=== PATIENT | male | born 1965 | race Caucasian/White ===

== ENCOUNTER 2016-08-16 13:56 | Outpatient (CLI) | payer OTHER ==
[~2016-08-16] VITALS: Ht 177.8 cm; Wt 110.3 kg
[~2016-08-16 13:56] MED LIST: DOCU-143 PO; FOLI1TAB24 PO; FURO20TA4 PO; HYDR-3990 PO; PANT40TA2 PO; PROP20TA5 PO; RABE20TA27 PO
[2016-08-16 14:05] VITALS: BP 134/82
[2016-08-16] MEDS ORDERED: ESCI10TA PO (14:09)
[2016-08-16] MEDS ORDERED: CETI10TA20 PO (14:09)
[2016-08-16] MEDS ORDERED: CLON0.1T PO (14:09)
[2016-08-16 14:35] LABS: BASOPHILS % (AUTO) 0 % (0-10); EOSINOPHILS # (AUTO) 0.1 10^3/uL (0.0-0.3); EOSINOPHILS % (AUTO) 2 % (0-10); LYMPHOCYTES # (AUTO) 1.4 X 10^3 (1.0-4.0); LYMPHOCYTES % (AUTO) 31 % (12-44); MEAN CORPUSCULAR HEMOGLOBIN 26 PG (25-34); MEAN CORPUSCULAR HGB CONC 31 G/DL (32-36); MEAN CORPUSCULAR VOLUME 83 FL (80-99); MEAN PLATELET VOLUME 10.3 FL (7.4-10.4); MONOCYTES # (AUTO) 0.7 X 10^3 (0.0-1.0); MONOCYTES % (AUTO) 15 % (0-12); NEUTROPHILS # (AUTO) 2.4 X 10^3 (1.8-7.8); NEUTROPHILS % (AUTO) 52 % (42-75); PLATELET COUNT 93 10^3/uL (130-400); RED BLOOD COUNT 3.56 10^6/uL (4.35-5.85); WHITE BLOOD COUNT 4.6 10^3/uL (4.3-11.0)
[2016-08-20] MEDS ORDERED: HYDR-3820 PO (10:00)
== END 2016-08-16 16:11 | disposition home or self-care (01) ==
LOC: PREOP 13:56
PROVIDERS: ATTEND Surgery
DX: Z01.812 Encounter for preprocedural laboratory examination (principal); Z11.2 Encounter for screening for other bacterial diseases; K42.9 Umbilical hernia without obstruction or gangrene
CPT/HCPCS: 36415; 85025; 87081

== ENCOUNTER 2016-08-20 07:24 | Day surgery (SDC) | payer OTHER ==
[~2016-08-20] VITALS: Ht 177.8 cm; Wt 110.3 kg
[~2016-08-20 07:24] MED LIST changes: +CETI10TA20 PO; +CLON0.1T PO; +ESCI10TA PO; +LACTATED RINGERS 1,000 ML IV PRN
[2016-08-20 07:43] LABS: MEAN PLATELET VOLUME 9.9 FL (7.4-10.4); RED BLOOD COUNT 3.84 10^6/uL (4.35-5.85); RED CELL DISTRIBUTION WIDTH 21.3 % (10.0-14.5); WHITE BLOOD COUNT 5.1 10^3/uL (4.3-11.0)
[2016-08-20] MEDS ORDERED: ceFAZolin 2 GM/NS 50 ML IV ONE (07:45)
[2016-08-20] MEDS ORDERED: FAMOTIDINE 20MG/2ML IV (PEPCID) ONE (07:47)
[2016-08-20 08:00] VITALS: BP 128/82
[2016-08-20] MEDS ORDERED: ONDANSETRON 4 MG/2 ML (SDV) Z0FRAN ONE (08:00)
[2016-08-20] MEDS ORDERED: proPOfol 200 MG/20 ML (DIPRIVAN) VIAL IV ONE (08:00)
[2016-08-20] MEDS ORDERED: ROCURONIUM 50 MG/5 ML (ZEMURON) VIAL IV ONE (08:00)
[2016-08-20] MEDS ORDERED: LIDOCAINE PF 2% 10 ML (XYLOCAINE) AMP ONE (08:00)
[2016-08-20] MEDS ORDERED: fentaNYL INJECTION 100 MCG/2 ML AMP ONE (08:00)
[2016-08-20] MEDS ORDERED: LACTATED RINGERS 1,000 ML IV ONE ×2 (08:00→09:37)
[2016-08-20] MEDS ORDERED: LIDOCAINE JELLY 2% (XYLOCAINE) 5 ML TUBE ONE (08:00)
[2016-08-20] MEDS ORDERED: MIDAZOLAM 2 MG/2 ML (VERSED) VIAL ONE (08:01)
[2016-08-20 08:07] LABS: ALANINE AMINOTRANSFERASE 17 U/L (0-55); ALBUMIN 2.7 G/DL (3.2-4.5); ANION GAP 8 MMOL/L (5-14); ASPARTATE AMINO TRANSFERASE 35 U/L (5-34); BILIRUBIN,TOTAL 1.7 MG/DL (0.1-1.0); BLOOD UREA NITROGEN 4 MG/DL (7-18); BUN/CREATININE RATIO 5; CALCIUM 7.8 MG/DL (8.5-10.1); CARBON DIOXIDE 23 MMOL/L (21-32); CHLORIDE 108 MMOL/L (98-107); CREATININE SERUM 0.75 MG/DL (0.60-1.30); GFR ESTIMATED > 60; GLUCOSE 92 MG/DL (70-105); POTASSIUM 3.9 MMOL/L (3.6-5.0); SODIUM 139 MMOL/L (135-145)
[2016-08-20] MEDS ORDERED: FAMOTIDINE 20MG/2ML IV (PEPCID) IV ONE (08:30)
[2016-08-20] MEDS ORDERED: LIDOCAINE/EPI 1%-1:100,000 (XYLOCAINE) 20ML ONE (08:51)
--- NOTE | 2016-08-20 08:55 | Progress Note-Pre Operative ---
Pre-Operative Progress Note H&P Reviewed The H&P was reviewed, patient examined and no changes noted. Date H&P Reviewed: August 20, 2016 Time H&P Reviewed: 08:47 Pre-Operative Diagnosis: umbilical hernia, cirrhosis CARIDAD GREEN DO August 20, 2016 08:55
[2016-08-20] MEDS ORDERED: NEOSTIGMINE (BLOXIVERZ ) 1 MG/1ML 10 ML VIAL ONE (09:36)
[2016-08-20] MEDS ORDERED: GLYCOPYRROLATE 0.2 MG/ML (ROBINUL) 2 ML VIAL ONE (09:36)
[2016-08-20] MEDS ORDERED: SEVOFLURANE (ULTANE) 15 ML INHAL SOLN ONE (09:53)
--- NOTE | 2016-08-20 09:58 | Progress Note-Post Operative ---
Post-Operative Progess Note Surgeon (s)/Fueler (s) Surgeon CARIDAD GREEN DO Fueler: Josef Pre-Operative Diagnosis umbilical hernia, cirrhosis Post-Operative Diagnosis same + ascites Post-Op Procedure Note Date of Procedure: August 20, 2016 Name of Procedure Performed: Lap UH with mesh drainage of ascites Description of the Procedure: as above Findings of the Procedure severe cirrhosis and ascites Anesthesia Type GET Estimated blood loss (mL): scant Specimen(s) collected/removed none CARIDAD GREEN DO August 20, 2016 09:58
[2016-08-20] MEDS ORDERED: HYDR-3820 PO ×2 (10:00)
--- NOTE | 2016-08-20 10:02 | Discharge Inst-Surgical ---
Discharge Inst-Surgical Depart Medication/Instructions New, Converted or Re-Newed RX: RX Given to Pt/Family Patient Instructions Follow up Appt: Make appointment for 1 week. [phone] Instructions: No lifting greater than 10 pounds. No strenuous activity. May shower in 24 hours, no tub bath or soaking. Use incentive spirometer at home as directed. No Smoking Skin/Wound Care: May remove bandages. You need to leave the white strips over incision on they will fall off on their own. Symptoms to Report: Appetite Changes, Extremity Discoloration, Numbness/Tingling, Swelling Increased , Bleeding Excessive, Eyesight Changes, Pain Increased, Urine Color Change, Constipation(Persistent), Fever over 101 degree F, Pain/Pressure in chest, Urinating Difficulty, Cough Up/Vomit Blood, Heart Beat Irreg/Pounding, Pain/ Pressure in jaw, Vaginal Bleeding Increase, Cramps in feet or legs, Lightheadedness, Pain/Pressure in shoulder, Diarrhea(Persistent), Memory Changes Suddenly, Questions/Concerns, Weight gain consecutive days, Dizziness/ Fainting, Nausea/Vomiting, Shortness of Breath, Weight gain over 2 pounds If questions or concerns contact your physician Or seek help at emergency department. Activity Activity as Tolerated: Yes Activity Instructions: Avoid Pulling & Pushing, Avoid Stress to Incision Driving Instructions: No Driving/Refer to Dr. Swan Discharge Diet: Low Sodium Diet Diet After 24 Hours: Clear Liquid if Nauseous If Any Problems/Questions/Issu: Contact Your Physician, Go to Emergency Room Skin/Wound Care Infection Signs and Symptoms: Increased Redness, Foul Odor of Wound, Increased Drainage, Skin Itchy or Has a Rash, Increased Swelling, Temperature Above 101 F Bathing Instructions: Shower Stitches/Hilda/Dermabond Dis: Dermabond Ice Pack: Ice On and Off Site CARIDAD GREEN DO August 20, 2016 10:02
[2016-08-20] MEDS ORDERED: MEPERIDINE (DEMEROL) INJ 50 MG/ML IVP PRN (10:15)
[2016-08-20] MEDS ORDERED: ONDANSETRON 4 MG/2 ML (SDV) Z0FRAN IVP PRN (10:15)
[2016-08-20] MEDS ORDERED: morphine INJ 10 MG/ML 1ML (SYR OR VIAL) ONE (10:35)
[2016-08-20] MEDS: morphine INJ 10 MG/ML 1ML (SYR OR VIAL) IVP PRN ×2 (10:43→10:48)
[2016-08-20 11:15] VITALS: BP 110/75
[2016-08-20 11:45] VITALS: BP 123/72
[2016-08-20 12:15] VITALS: BP 121/77
--- NOTE | 2016-08-21 01:45 | OPERATIVE REPORT ---
DATE OF SERVICE: 08/20/2016 PREOPERATIVE DIAGNOSES: 1. Umbilical hernia with occasional incarceration. 2. Cirrhosis. POSTOPERATIVE DIAGNOSES: 1. Umbilical hernia with occasional incarceration. 2. Severe cirrhosis. 3. Ascites. PROCEDURES: 1. Laparoscopic umbilical herniorrhaphy and mesh placement. 2. Drainage of ascites. SURGEON: Dr. Jh Treadwell. AIR REDUCTION EQUIPMENT OPERATOR: Dr. Bahena. ANESTHESIA: General endotracheal tube. BLOOD LOSS: Scant. SPECIMEN: None. FLUIDS: Per anesthesia. POSTOPERATIVE CONDITION: Stable. INDICATION FOR PROCEDURE: The patient is a 51-year-old male who has an umbilical hernia, it has being getting caught in there with increasing pain. He does have cirrhosis, was diagnosed as a Child's class B. However, at this stage, elective surgery has less risk than emergency surgery. So, it is better to do surgery now. FINDINGS: The patient had severe cirrhosis, pictures of liver were taken as well. He had ascites and this umbilical hernia. PROCEDURE NOTE: After informed consent was obtained, the patient brought to the operating room, placed on table in supine position. He was sterilely prepped and draped in normal fashion. Local lidocaine was used to infiltrate the skin in left upper quadrant. Then made an incision with a #11 blade, carried down through the skin into the subcutaneous tissue, then debrided down the subcutaneous tissue with Bovie cautery down to the fascia. Fascia incised with Bovie electrocautery and then bluntly spread the muscle with the S-retractors down to the posterior fascia and then down into the peritoneum. Placed an 11 mm trocar port under direct visualization. Created a pneumoperitoneum and then placed 2 more ports in a normal fashion using local lidocaine, a 11 blade for stab incision and the VersaStep system, all done under direct visualization, one in the left lower quadrant, one in the right and mid abdomen out to the side. Upon entry, noted ascites, drained about 3 liters of this off, took a picture of the liver. There was severe cirrhosis almost stage IV possibly. Took a picture of the umbilical hernia then elected to place a bard echo mesh. The 6 inch round mesh was placed, put this into the abdomen and then made a small stab incision above the umbilicus. We used Ty Marcano to grasp the catheter and pulled this up to the abdominal wall, inflated the balloon, so that the mesh stuck to the abdominal wall and then used a secure strap to tack this down at [address] intervals all the way around and then in the middle had to use two secure straps to do this, took out the balloon. Mesh appeared to be in good place and in good position. Allowed pneumoperitoneum to escape and watched the mesh and still had a couple wrinkles but looked pretty good, had already drained fluid and removed all ports under direct visualization allowing pneumoperitoneum to escape. Closed the left upper quadrant incision closing the peritoneum with 3-0 Vicryl [id number] suture then closed the posterior fascia with [id number] 3-0 Vicryl suture then closed the anterior fascia with #1-Vicryl [id number] suture. Area was then cleaned and dried. Two small 5 mm incisions were closed with a single interrupted 4-0 nylon interrupted subcuticular stitch and left upper quadrant incision was closed with 4-0 undyed Monocryl in a running subcuticular fashion. Area was cleaned and dried. Dermabond was placed. The patient then transferred to recovery room in stable condition. Sponge and needle counts correct at the end of the case. Dr. Bahena assisted in this case, helping to tack in the mesh. He placed ports as well as identified anatomy and helped close. Job ID: [id number] DocumentID: [id number] Dictated Date: 08/20/2016 10:20:46 Recycling Assistant Date: 08/21/2016 00:44:51 Dictated By: JH TREADWELL DO MTDJames
== END 2016-08-20 12:55 | disposition home or self-care (01) ==
LOC: SDC 07:24
PROVIDERS: ATTEND Surgery
DX: K42.9 Umbilical hernia without obstruction or gangrene (principal); K70.31 Alcoholic cirrhosis of liver with ascites; J44.9 Chronic obstructive pulmonary disease, unspecified; F17.210 Nicotine dependence, cigarettes, uncomplicated; Z79.899 Other long term (current) drug therapy
CPT/HCPCS: 36415; 80053; 85027

== ENCOUNTER → 2016-08-23 | Outpatient (CLI) | payer OTHER ==
[~2016-08-23] MED LIST changes: +HYDR-3820 PO; -LACTATED RINGERS 1,000 ML IV PRN
[2016-08-23 11:53] LABS: BASOPHILS % (AUTO) 0 % (0-10); EOSINOPHILS % (AUTO) 1 % (0-10); LYMPHOCYTES # (AUTO) 0.8 X 10^3 (1.0-4.0); LYMPHOCYTES % (AUTO) 12 % (12-44); MEAN CORPUSCULAR HEMOGLOBIN 26 PG (25-34); MEAN CORPUSCULAR HGB CONC 32 G/DL (32-36); MEAN CORPUSCULAR VOLUME 81 FL (80-99); MEAN PLATELET VOLUME 10.4 FL (7.4-10.4); MONOCYTES # (AUTO) 0.9 X 10^3 (0.0-1.0); MONOCYTES % (AUTO) 15 % (0-12); NEUTROPHILS # (AUTO) 4.4 X 10^3 (1.8-7.8); NEUTROPHILS % (AUTO) 72 % (42-75); PLATELET COUNT 74 10^3/uL (130-400); RED BLOOD COUNT 3.91 10^6/uL (4.35-5.85); RED CELL DISTRIBUTION WIDTH 20.7 % (10.0-14.5); WHITE BLOOD COUNT 6.1 10^3/uL (4.3-11.0)
== END ==
LOC: LAB 11:31
PROVIDERS: ATTEND Surgery
DX: R10.31 Right lower quadrant pain (principal)
CPT/HCPCS: 36415; 85025

== ENCOUNTER 2016-09-03 08:09 | Day surgery (SDC) | payer OTHER ==
[~2016-09-03] VITALS: Ht 177.8 cm; Wt 110.3 kg
[2016-09-03] MEDS ORDERED: LACTATED RINGERS 1,000 ML IV PRN (08:50)
[2016-09-03 09:00] VITALS: BP 145/90
[2016-09-03 09:13] LABS: MEAN PLATELET VOLUME 10.3 FL (7.4-10.4); RED BLOOD COUNT 3.86 10^6/uL (4.35-5.85); RED CELL DISTRIBUTION WIDTH 19.3 % (10.0-14.5); WHITE BLOOD COUNT 5.7 10^3/uL (4.3-11.0)
--- NOTE | 2016-09-03 09:16 | Progress Note-Pre Operative ---
Pre-Operative Progress Note H&P Reviewed The H&P was reviewed, patient examined and no changes noted. Date H&P Reviewed: September 03, 2016 Time H&P Reviewed: 09:14 Pre-Operative Diagnosis: Uncontrolled Ascites, cirrhosis secondary to alcohol and Hep C CARIDAD GREEN DO September 03, 2016 09:16
[2016-09-03 09:23] LABS: INR 1.3 (0.8-1.4); PROTHROMBIN TIME PATIENT 15.9 SEC (12.2-14.7)
[2016-09-03 09:33] LABS: ALANINE AMINOTRANSFERASE 45 U/L (0-55); ALBUMIN 2.3 G/DL (3.2-4.5); ANION GAP 7 MMOL/L (5-14); ASPARTATE AMINO TRANSFERASE 107 U/L (5-34); BILIRUBIN,TOTAL 1.2 MG/DL (0.1-1.0); BLOOD UREA NITROGEN 3 MG/DL (7-18); BUN/CREATININE RATIO 5; CALCIUM 7.6 MG/DL (8.5-10.1); CARBON DIOXIDE 22 MMOL/L (21-32); CHLORIDE 103 MMOL/L (98-107); CREATININE SERUM 0.66 MG/DL (0.60-1.30); GFR ESTIMATED > 60; GLUCOSE 124 MG/DL (70-105); SODIUM 132 MMOL/L (135-145); TOTAL PROTEIN 5.4 G/DL (6.4-8.2)
[2016-09-03] MEDS ORDERED: LIDOCAINE/EPI 1%-1:100,000 (XYLOCAINE) 20ML ONE (09:47)
[2016-09-03] MEDS ORDERED: proPOfol 200 MG/20 ML (DIPRIVAN) VIAL IV ONE (09:47)
[2016-09-03] MEDS ORDERED: LIDOCAINE PF 2% 10 ML (XYLOCAINE) AMP ONE (09:47)
[2016-09-03] MEDS ORDERED: fentaNYL INJECTION 100 MCG/2 ML AMP ONE (09:48)
[2016-09-03] MEDS ORDERED: LACTATED RINGERS 1,000 ML IV ONE (09:50)
--- NOTE | 2016-09-03 10:50 | Progress Note-Post Operative ---
Post-Operative Progess Note Surgeon (s)/Magazine Filler (s) Surgeon CARIDAD GREEN DO Magazine Filler: none Pre-Operative Diagnosis Uncontrolled Ascites, cirrhosis secondary to alcohol and Hep C Post-Operative Diagnosis same Procedure & Operative Findings Date of Procedure 09/03/16 Procedure Performed/Findings Insertion of tunneled Pleur-X catheter Anesthesia Type IV sedation Estimated Blood Loss Estimated blood loss (mL): less than 5ml Specimens/Packing Specimens Removed abdominal fluid sent for culture CARIDAD GREEN DO September 03, 2016 10:50
[2016-09-03] MEDS ORDERED: HYDR-3812 PO (10:55)
--- NOTE | 2016-09-03 10:58 | Discharge Inst-Surgical ---
Discharge Inst-Surgical Depart Medication/Instructions New, Converted or Re-Newed RX: RX Given to Pt/Family Patient Instructions Follow up Appt: Make appointment for 1 week. Instructions: No lifting greater than 10 pounds. No strenuous activity. May shower in 24 hours, no tub bath or soaking. Use incentive spirometer at home as directed. No Smoking Skin/Wound Care: May remove bandages. You need to leave the white strips over incision on they will fall off on their own. Symptoms to Report: Appetite Changes, Extremity Discoloration, Numbness/Tingling, Swelling Increased , Bleeding Excessive, Eyesight Changes, Pain Increased, Urine Color Change, Constipation(Persistent), Fever over 101 degree F, Pain/Pressure in chest, Urinating Difficulty, Cough Up/Vomit Blood, Heart Beat Irreg/Pounding, Pain/ Pressure in jaw, Vaginal Bleeding Increase, Cramps in feet or legs, Lightheadedness, Pain/Pressure in shoulder, Diarrhea(Persistent), Memory Changes Suddenly, Questions/Concerns, Weight gain consecutive days, Dizziness/ Fainting, Nausea/Vomiting, Shortness of Breath, Weight gain over 2 pounds If questions or concerns contact your physician Or seek help at emergency department. Activity Activity as Tolerated: Yes Activity Instructions: Avoid Stress to Incision Driving Instructions: No Driving/Refer to Dr. Swan Discharge Diet: Low Sodium Diet Comment: Follow up in DR. Treadwell's office on Tuesday or Tuesday If Any Problems/Questions/Issu: Contact Your Physician, Go to Emergency Room Skin/Wound Care Infection Signs and Symptoms: Increased Redness, Foul Odor of Wound, Increased Drainage, Skin Itchy or Has a Rash, Increased Swelling, Temperature Above 101 F Bathing Instructions: Sponge Operative Area Clean and Dry: Do Not Remove Bandage, Keep Incision Clean/Dry Ice Pack: No Ice to Operative Site CARIDAD TREADWELL DO September 03, 2016 10:58
[2016-09-03 11:15] VITALS: BP 120/79
[2016-09-03 11:45] VITALS: BP 129/77
--- NOTE | 2016-09-03 13:55 | OPERATIVE REPORT ---
DATE OF SERVICE: 09/03/2016 PREOPERATIVE DIAGNOSES: 1. Uncontrolled ascites. 2. Cirrhosis of the liver secondary to Hepatitis C and alcoholism. POSTOPERATIVE DIAGNOSES: 1. Uncontrolled ascites. 2. Cirrhosis of the liver secondary to Hepatitis C and alcoholism. PROCEDURE: Insertion of tunneled PleurX catheter to drain the ascites. SURGEON: CARIDAD GREEN DO OPTOMETRIST/PRACTICE OWNER: None. ANESTHESIA: IV sedation. BLOOD LOSS: Less than 5 mL. SPECIMEN: Abdominal fluid sent for culture. POST-OP CONDITION: Stable. INDICATION FOR PROCEDURE: The patient is a 51-year-old male who unfortunately has cirrhosis, probably Stage IV liver disease, SUNI class B with uncontrolled ascites and needs to get this drained to help with quality of life and abdominal symptoms. FINDINGS: The patient had PleurX catheter tunneled catheter placed as 3200 mL of ascitic fluid drained off. PROCEDURE NOTE: After informed consent was obtained, the patient brought to the operating room and placed on the table in supine position. He was sterilely prepped and draped in normal fashion and then using an ultrasound guidance, placed the ultrasound in the right lower quadrant, found a pocket of fluid, infiltrated the skin with local and then along a tunneled area as well with local and then made a small stab incision with a #11 blade, a small 5 mm incision and then under direct ultrasound guidance, advanced the needle with the catheter. Once the needle was pushed into the abdomen, then quickly removed it and started getting some fluid out of the catheter. Then placed the guidewire down to the catheter using Seldinger technique. Then, approximately 5 cm above the previous incision, made another incision,a small stab incision, with a #11 blade and then used the tunneler from the top to the bottom and then attached the catheter and then pulled this through, pulling the catheter through so the cuff was into the subcutaneous tissue under the incision. Then, over the guidewire placed a dilator in a sequential fashion, dilating this up and then the second dilator had an inner portion and then placed the catheter down the inner portion of the sheath, first removed the inner portion of the sheath and the guidewire and then placed the catheter down into the abdomen and then carefully split the catheter sheath open to remove it and then drained approximately 3200 mL of ascitic fluid. It was yellow, did not appear infected. There was no cloudiness. Sutured the lower incision closed with a 4-0 Monocryl subcuticular stitch and then sutured the upper portion in place with a 0 silk on a Dominick needle and then carefully cleaned and dried this area and then placed the sponge and the dressing. The patient was then transferred to recovery room in stable condition. Sponge and needle count correct at the end of the case. Job ID: [id number] DocumentID: [id number] Dictated Date: 09/03/2016 10:59:57 Plant Reliability Engineer Date: 09/03/2016 13:55:21 Dictated By: DO NABEEL OQUENDO
--- NOTE | 2016-09-03 19:58 | Diagnostic Imaging Report ---
PROCEDURE: US Abdomen, limited. TECHNIQUE: Multiple real-time grayscale images were obtained over the abdomen in various projections. INDICATION: Provide guidance in surgery for PleurX catheter access. FINDINGS: The abdomen demonstrates moderate to large ascites. The guidance for deep pocket of fluid suitable for needle access is provided to Dr. Treadwell who performed PleurX catheter placement. IMPRESSION: Large ascites. Dictated by: Dictated on workstation # [id number]
== END 2016-09-03 12:03 | disposition home or self-care (01) ==
LOC: SDC 08:09
PROVIDERS: ATTEND Surgery
DX: K70.31 Alcoholic cirrhosis of liver with ascites (principal); B18.2 Chronic viral hepatitis C; F17.210 Nicotine dependence, cigarettes, uncomplicated
CPT/HCPCS: 36415; 76705; 80053; 85027; 85610; 87070; 87075; 87081; 87205

== ENCOUNTER 2016-09-09 13:41 | Outpatient (RCR) | payer OTHER ==
[~2016-09-09] VITALS: Ht 177.8 cm; Wt 110.3 kg
[~2016-09-09 13:41] MED LIST changes: +HYDR-3812 PO
[2016-09-09 13:45] VITALS: BP 120/76
[2016-09-13] MEDS ORDERED: LEVO500T80 PO (17:09)
[2016-09-13] MEDS ORDERED: RT-ALBUINH IH (17:09)
[2016-09-20] MEDS ORDERED: SULF1TAB35 PO (14:04)
[2016-09-20] MEDS ORDERED: FLUC100T PO (14:04)
[2016-09-22] MEDS ORDERED: FLUC100T6 PO (13:36)
[2016-09-22] MEDS ORDERED: GABA-488 PO ×2 (13:36)
[2016-09-22] MEDS ORDERED: SULF1TAB35 PO (13:36)
[2016-09-23] MEDS ORDERED: HYDR-757 PO (13:21)
== END 2016-12-08 | disposition home or self-care (01) ==
LOC: SDC 13:41
PROVIDERS: ATTEND Surgery
DX: Z46.59 Encounter for fitting and adjustment of other gastrointestinal appliance and device (principal)

== ENCOUNTER 2016-09-13 10:57 | Emergency (ER) | payer SELFPAY ==
[~2016-09-13] VITALS: Ht 177.8 cm; Wt 97.5 kg
--- NOTE | 2016-09-13 11:35 | ED GI ---
General Chief Complaint: Catheter/Drain/Tube Problems Stated Complaint: DRAINAGE MISAEL OPENED/SPURTING Nursing Triage Note: PT STATES DRAIN TUBE CAME OUT THIS AM AND IS DRAINING ALOT. PT STATES DRAINED ABOUT 4000CC OUT ON TUESDAY, PT HAS PARACENTESIS TUBE THAT WAS SUTURED IN. PT STATES HAS DRAINED ALOT Sepsis Screen: No Definite Risk Source of Information: Patient Exam Limitations: No Limitations History of Present Illness Time Seen By Provider: 11:14 Initial Comments 51-year-old male patient presents to the emergency department with complaints of his paracentesis drain falling out at home this a.m. States suture came out. Paracentesis drain was placed by Dr. Green on 09/03/16. Unable to get the drainage from the abdominal wound to stop. Patient reports he has felt like he had a fever the last couple of days. Also complains of cough and occasional wheezing. Timing/Duration: Other (onset this a.m.) Severity/Quality: Severe Location: RLQ Radiation: No Radiation Activities at Onset: Sleeping Modifying Factors: Worsens With Other (no improvement with compression.) Allergies and Home Medications Allergies Coded Allergies: No Known Drug Allergies (Unverified , 08/16/16) Home Medications Albuterol Sulfate 6.7 Gm Hfa.aer.ad, 2 PUFF IH Q6H PRN for SHORTNESS OF BREATH, #1 Ref 0 Prescribed by: CARINE HAMMOND on 09/13/161708 Cetirizine HCl 10 Mg Tablet, 10 MG PO DAILY, (Reported) Clonidine HCl 0.1 Mg Tablet, 0.1 MG PO DAILY, (Reported) Escitalopram Oxalate 10 Mg Tablet, 10 MG PO DAILY, (Reported) Folic Acid 1 Mg Tablet, 1 MG PO DAILY, (Reported) Furosemide 20 Mg Tablet, 20 MG PO DAILY, (Reported) Hydrocodone/Acetaminophen 1 Each Tablet, 1 TAB PO Q6H PRN, #20 Ref 0 Prescribed by: CARIDAD GREEN on 09/03/16 1055 Levofloxacin 500 Mg Tablet, 500 MG PO DAILY, #7 Ref 0 Prescribed by: CARINE HAMMOND on 09/13/16 170 Pantoprazole Sodium 40 Mg Tablet.dr, 40 MG PO HS, (Reported) Propranolol HCl 20 Mg Tablet, 20 MG PO BID, (Reported) Review of Systems Constitutional: see HPI, chills, fever, malaise EENTM: No Symptoms Reported Respiratory: See HPI, Cough, Denies Shortness of Air, Denies SOA With Exertion , Wheezing (occasional wheezing.) Cardiovascular: No Symptoms Reported Gastrointestinal: See HPI, Denies Abdominal Pain, Denies Diarrhea, Denies Nausea, Denies Poor Appetite, Denies Vomiting Genitourinary: Denies Burning, Denies Frequency, Denies Flank Pain, Denies Hematuria, Denies Pain Musculoskeletal: no symptoms reported Skin: see HPI, No change in color, other (draining wound of the abdominal wall. ) Psychiatric/Neurological: No Symptoms Reported All Other Systems Reviewed Negative Unless Noted: Yes (Negative excepted noted.) Past Zkcymxg-Bqlukf-Ugyyxy Hx Patient Social History Alcohol Use: Past History Recreational Drug Use: No (PAST HX) Drug of Choice: MARIJUANA Smoking Status: Current Someday Smoker Type Used: Cigarettes Recent Foreign Travel: No Contact w/Someone Who Travel: No Recent Infectious Disease Expo: No Recent Hopitalizations: No Immunizations Up To Date Tetanus Booster (TDap): Unknown Seasonal Allergies Seasonal Allergies: Yes Surgeries HX Surgeries: Yes (UMBILICAL HERNIA, SKIN LESION REMOVED FROM NOSE, SHOULDER, AND BACK) Respiratory Hx Respiratory Disorders: Yes Respiratory Disorders: COPD Cardiovascular Hx Cardiac Disorders: Yes Cardiac Disorders: Hypertension Neurological Hx Neurological Disorders: Yes Neurological Disorders: Neuropathy Reproductive System Hx Reproductive Disorders: No Genitourinary Hx Genitourinary Disorders: No Gastrointestinal Hx Gastrointestinal Disorders: Yes (HEP C+) Gastrointestinal Disorders: Gastroesophageal Reflux, Hepatitis Musculoskeletal Hx Musculoskeletal Disorders: Yes (BILAT FEET PAIN) Endocrine Hx Endocrine Disorders: No HEENT HX ENT Disorders: Yes (DENTURES) Loss of Vision: Denies Hearing Impairment: Denies Cancer Hx Cancer: Yes Cancer: Skin Psychosocial Hx Psychiatric Problems: Yes Behavioral Health Disorders: Anxiety, Bipolar, Depression Integumentary HX Skin/Integumentary Disorder: Yes (SKIN LESIONS) Blood Transfusions Hx Blood Disorders: Yes (HEP C+) Adverse Reaction to a Blood Tr: No (N/A) Reviewed Nursing Assessment Reviewed/Agree w Nursing PMH: Yes Family Medical History Significant Family History: No Pertinent Family Hx Physical Exam Vital Signs VS - Last 72 Hours, by Label 09/13/16 09/13/16 09/13/16 11:00 13:26 17:18 Temp 97.8 Pulse 83 80 Resp 18 18 B/P (MAP) 153/67 Pulse Ox 97 95 95 Capillary Refill : Less Than 3 Seconds General Appearance: WD/WN, no apparent distress HEENT: PERRL/EOMI, normal ENT inspection, TMs normal, pharynx normal Neck: supple, normal inspection Respiratory: lungs clear, no respiratory distress, decreased breath sounds (( rt base)) Cardiovascular: regular rate, rhythm, no murmur Gastrointestinal: normal bowel sounds, non tender, distended, No guarding, No rebound, No tenderness, hernia (umbilical.), other ((+) ascites. serous drainage from the wound in the RLQ with minial erythema and a small amount of eschar. 1 suture noted at the umbilicus.) Extremities: normal capillary refill Back: normal inspection, no CVA tenderness Neurologic/Psychiatric: alert, normal mood/affect, oriented x 3 Skin: normal color, warm/dry, other ((+) ascites. serous drainage from the wound in the RLQ with minial erythema and a small amount of eschar. 1 suture noted at the umbilicus.) Progress/Results/Core Measures Results/Orders Lab Results Laboratory Tests Test 09/13/16 12:30 09/13/16 12:54 09/13/16 16:30 Range/Units White Blood Count 8.8 4.3-11.0 10^3/uL Red Blood Count 3.77 L 4.35-5.85 10^6/uL Hemoglobin 9.6 L 13.3-17.7 G/DL Hematocrit 30 L 40-54 % Mean Corpuscular Volume 79 L 80-99 FL Mean Corpuscular Hemoglobin 26 25-34 PG Mean Corpuscular Hemoglobin Concent 32 32-36 G/DL Red Cell Distribution Width 19.4 H 10.0-14.5 % Platelet Count 176 130-400 10^3/uL Mean Platelet Volume 11.5 H 7.4-10.4 FL Neutrophils (%) (Auto) 75 42-75 % Lymphocytes (%) (Auto) 8 L 12-44 % Monocytes (%) (Auto) 18 H 0-12 % Eosinophils (%) (Auto) 0 0-10 % Basophils (%) (Auto) 0 0-10 % Neutrophils # (Auto) 6.5 1.8-7.8 X 10^3 Lymphocytes # (Auto) 0.7 L 1.0-4.0 X 10^3 Monocytes # (Auto) 1.5 H 0.0-1.0 X 10^3 Eosinophils # (Auto) 0.0 0.0-0.3 10^3/uL Basophils # (Auto) 0.0 0.0-0.1 10^3/uL Sodium Level 131 L 135-145 MMOL/L Potassium Level 4.3 3.6-5.0 MMOL/L Chloride Level 100 98-107 MMOL/L Carbon Dioxide Level 21 21-32 MMOL/L Anion Gap 10 5-14 MMOL/L Blood Urea Nitrogen 6 L 7-18 MG/DL Creatinine 0.66 0.60-1.30 MG/DL Estimat Glomerular Filtration Rate > 60 BUN/Creatinine Ratio 9 Glucose Level 130 H 70-105 MG/DL Calcium Level 7.4 L 8.5-10.1 MG/DL Total Bilirubin 2.6 H 0.1-1.0 MG/DL Aspartate Amino Transf (AST/SGOT) 91 H 5-34 U/L Alanine Aminotransferase (ALT/SGPT) 54 0-55 U/L Alkaline Phosphatase 105 40-136 U/L Total Protein 5.1 L 6.4-8.2 G/DL Albumin 2.0 L 3.2-4.5 G/DL Urine Color DEMETRIA H Urine Clarity SLIGHTLY CLOUDY Urine pH 6 5-9 Urine Specific [place] 1.010 L 1.016-1.022 Urine Protein 1+ H NEGATIVE Urine Glucose (UA) NEGATIVE NEGATIVE Urine Ketones 1+ H NEGATIVE Urine Nitrite NEGATIVE NEGATIVE Urine Bilirubin 2+ H NEGATIVE Urine Urobilinogen 4 H NORMAL MG/DL Urine Leukocyte Esterase 1+ H NEGATIVE Urine RBC (Auto) NEGATIVE NEGATIVE Urine RBC NONE /HPF Urine WBC 2-5 /HPF Urine Squamous Epithelial Cells 2-5 /HPF Urine Crystals NONE /LPF Urine Bacteria NEGATIVE /HPF Urine Casts NONE /LPF Urine Mucus SMALL H /LPF Urine Culture Indicated NO My Orders Orders - CARINE HAMMOND PA Cbc With Automated Diff (09/13/16 11:35) Comprehensive Metabolic Panel (09/13/16 11:35) Ua Culture If Indicated (09/13/16 11:35) Wound Culture (09/13/16 11:35) Anaerobic Culture (09/13/16 11:35) Saline Lock/Iv-Start (09/13/16 11:35) Chest 1 View, Ap/Pa Only (09/13/16 11:35) Morphine Injection (Morphine Injection (09/13/16 12:37) Albuterol/Ipra Inhalation Soln (Duoneb I (09/13/16 13:15) Svn Sm Volume Nebulizer Rt-Rfs (09/13/16 13:06) Ceftriaxone Injection (Rocephin Injectio (09/13/16 15:45) Ns Iv 1000 Ml (Sodium Chloride 0.9%) (09/13/16 15:31) Medications Given in ED Current Medications Medications Dose Ordered Sig/Eufemia Route Start Time Stop Time Status Last Admin Dose Admin Albuterol/ Ipratropium 3 ml ONCE ONCE INH 09/13/16 13:15 09/13/16 13:16 DC 09/13/16 13:26 3 ML Ceftriaxone Sodium 1000 mg/ Sodium Chloride 50 ml @ 100 mls/hr ONCE ONCE IV 09/13/16 15:45 09/13/16 16:14 DC 09/13/16 16:00 100 MLS/HR Sodium Chloride 1,000 ml @ 0 mls/hr Q0M ONCE IV 09/13/16 15:31 09/13/16 15:33 DC 09/13/16 15:58 1,000 MLS/HR Vital Signs/I&O Vital Sign - Last 12Hours 09/13/16 09/13/16 09/13/16 11:00 13:26 17:18 Temp 97.8 Pulse 83 80 Resp 18 18 B/P (MAP) 153/67 Pulse Ox 97 95 95 Intake and Output 09/14/16 00:00 Intake Total 450 ml Balance 450 ml Blood Pressure Mean: 95 Diagnostic Imaging Diagonstic Imaging: Xray Plain Films/CT/US/NM/MRI: chest Comments Findings: Lungs/pleura: There is mild atelectasis versus infiltrate in medial right lung base. There is mild left lung base atelectasis. Otherwise, lungs are clear. There is no pneumothorax. There is no pleural effusion. Mediastinum: Unremarkable. Pulmonary vasculature: Unremarkable. Heart: Unremarkable. Bones/ extrathoracic soft tissue: Unremarkable. Impression: There is mild medial right lung base atelectasis versus infiltrate and mild left lung base atelectasis. Dictated by: Dictated on workstation # [id number] Reviewed: Reviewed by Me (radiology report reviewed by me) Departure Communication Progress Notes Patient seen and evaluated. Due to recent fever and chills laboratory testing, chest x-ray, wound culture, and urinalysis were obtained. Ostomy appliance was applied to the draining wound of the right lower quadrant. Patient did have difficulty getting urine specimen. States he has decrease the amount he was drinking today due to the draining wound. Denies any nausea or vomiting. She was given IV fluids and was able to give a urine specimen at 1630. All laboratory findings and diagnostic study findings were discussed with the patient. Patient reports feeling better after IV fluids and medications given. Plan for discharge to home with follow-up as an outpatient with Dr. Green for scheduling outpatient paracentesis versus ultrasound-guided percutaneous drain placement in radiology. Patient to contact their office tomorrow morning for appointment time. All return precautions were discussed with the patient as described in the discharge instructions of this report. Patient voices understanding and agrees with the treatment plan. Impression Impression: Primary Impression: Pneumonitis Additional Impressions: Wound, open, abdominal wall, lateral Qualified Codes: S31.109A - Unspecified open wound of abdominal wall, unspecified quadrant without penetration into peritoneal cavity, initial encounter Ascites Qualified Codes: K70.31 - Alcoholic cirrhosis of liver with ascites Disposition: HOME, SELF-CARE Condition: Improved Departure-Patient Inst. Decision time for Depature: 17:07 Referrals: LAYO BRUNNER DO (PCP) Primary Care Physician LILY LAKHANI (Family) Primary Care Physician CARIDAD GREEN DO Patient Instructions: Community-Acquired Pneumonia, Adult (DC), Fluid in the Belly (Ascites) (DC) Add. Discharge Instructions: All discharge instructions reviewed with patient and/or family. Voiced understanding. Medications as instructed. Continue usual home medications. Drain the ostomy bag as needed. You may reinforce the ostomy apparatus with tape if needed. Return to the emergency department for fever, shortness of air , redness, pus like drainage, or any other concerns. Contact Dr. Green's office first thing tomorrow morning for scheduling outpatient paracentesis drain placement. Scripts Albuterol Sulfate (Proventil Hfa) 6.7 Gm Hfa.aer.ad 2 PUFF IH Q6H Y for SHORTNESS OF BREATH, #1 EACH 0 Refills Prov: CARINE HAMMOND 09/13/16 Levofloxacin (Levofloxacin) 500 Mg Tablet 500 MG PO DAILY, #7 TAB 0 Refills Prov: CARINE HAMMOND 09/13/16 CARINE HAMMOND September 13, 2016 11:35
--- NOTE | 2016-09-13 12:29 | Diagnostic Imaging Report ---
Clinical indication: Patient complains of chest pain. Exam: Portable chest x-ray upright view. Comparisons: None. Findings: Lungs/pleura: There is mild atelectasis versus infiltrate in medial right lung base. There is mild left lung base atelectasis. Otherwise, lungs are clear. There is no pneumothorax. There is no pleural effusion. Mediastinum: Unremarkable. Pulmonary vasculature: Unremarkable. Heart: Unremarkable. Bones/extrathoracic soft tissue: Unremarkable. Impression: There is mild medial right lung base atelectasis versus infiltrate and mild left lung base atelectasis. Dictated by: Dictated on workstation # [id number]
[2016-09-13] MEDS ORDERED: morphine INJ 10 MG/ML 1ML (SYR OR VIAL) IVP STA (12:37)
[2016-09-13 12:40] LABS: BASOPHILS % (AUTO) 0 % (0-10); EOSINOPHILS % (AUTO) 0 % (0-10); LYMPHOCYTES # (AUTO) 0.7 X 10^3 (1.0-4.0); LYMPHOCYTES % (AUTO) 8 % (12-44); MEAN CORPUSCULAR HEMOGLOBIN 26 PG (25-34); MEAN CORPUSCULAR HGB CONC 32 G/DL (32-36); MEAN CORPUSCULAR VOLUME 79 FL (80-99); MEAN PLATELET VOLUME 11.5 FL (7.4-10.4); MONOCYTES # (AUTO) 1.5 X 10^3 (0.0-1.0); MONOCYTES % (AUTO) 18 % (0-12); NEUTROPHILS # (AUTO) 6.5 X 10^3 (1.8-7.8); NEUTROPHILS % (AUTO) 75 % (42-75); PLATELET COUNT 176 10^3/uL (130-400); RED BLOOD COUNT 3.77 10^6/uL (4.35-5.85); RED CELL DISTRIBUTION WIDTH 19.4 % (10.0-14.5); WHITE BLOOD COUNT 8.8 10^3/uL (4.3-11.0)
[2016-09-13] MEDS ORDERED: RT-ALBUTEROL/IPRATROPIUM 3 ML (DUONEB) VIAL INH ONE (13:15)
[2016-09-13 13:24] LABS: ALANINE AMINOTRANSFERASE 54 U/L (0-55); ANION GAP 10 MMOL/L (5-14); ASPARTATE AMINO TRANSFERASE 91 U/L (5-34); BILIRUBIN,TOTAL 2.6 MG/DL (0.1-1.0); BLOOD UREA NITROGEN 6 MG/DL (7-18); BUN/CREATININE RATIO 9; CALCIUM 7.4 MG/DL (8.5-10.1); CARBON DIOXIDE 21 MMOL/L (21-32); CHLORIDE 100 MMOL/L (98-107); CREATININE SERUM 0.66 MG/DL (0.60-1.30); GFR ESTIMATED > 60; GLUCOSE 130 MG/DL (70-105); POTASSIUM 4.3 MMOL/L (3.6-5.0); SODIUM 131 MMOL/L (135-145); TOTAL PROTEIN 5.1 G/DL (6.4-8.2)
[2016-09-13] MEDS ORDERED: NS IV 1000 ML 1,000 ML IV ONE (15:31)
[2016-09-13] MEDS ORDERED: cefTRIAXone INJECTION 1,000 MG in NS (IVPB) 50 ML IV ONE (15:45)
[2016-09-13 16:41] LABS: KETONES,URINE 1+ (NEGATIVE); LEUKOCYTE ESTERASE ,URINE 1+ (NEGATIVE); NITRITE,URINE NEGATIVE (NEGATIVE); PH,URINE 6 (5-9); PROTEIN,URINE 1+ (NEGATIVE); UROBILINOGEN,URINE 4 MG/DL (NORMAL)
[2016-09-13 16:52] LABS: BILIRUBIN,URINE 2+ (NEGATIVE)
[2016-09-13] MEDS ORDERED: LEVO500T80 PO (17:09)
[2016-09-13] MEDS ORDERED: RT-ALBUINH IH (17:09)
[2016-09-13 17:18] VITALS: BP 142/67
== END 2016-09-13 17:18 | disposition home or self-care (01) ==
LOC: EDUNIT# 10:57 → ER 10:58
DX: J18.9 Pneumonia, unspecified organism (principal); K91.89 Other postprocedural complications and disorders of digestive system; K70.31 Alcoholic cirrhosis of liver with ascites; B18.2 Chronic viral hepatitis C; I10 Essential (primary) hypertension; J44.9 Chronic obstructive pulmonary disease, unspecified; F17.210 Nicotine dependence, cigarettes, uncomplicated; Z79.899 Other long term (current) drug therapy; Z98.890 Other specified postprocedural states
CPT/HCPCS: 36415; 71010; 80053; 81000; 85025; 87070; 87075; 87077; 87186; 87205; 94640

== ENCOUNTER 2016-09-20 12:21 | Emergency (ER) | payer OTHER ==
[~2016-09-20] VITALS: Ht 177.8 cm; Wt 106.6 kg
[~2016-09-20 12:21] MED LIST changes: +LEVO500T80 PO; +RT-ALBUINH IH
--- NOTE | 2016-09-20 12:59 | ED General ---
General Chief Complaint: Skin/Wound Problems Stated Complaint: POST OP COMPLICATIONS Nursing Triage Note: AMBULATED TO ROOM 03 FROM HOME. STATES WOUND ON RIGHT SIDE OF ABD STARTED DRAINING LARGE AMT OF CLEAR FLUID. ASLO STATES LIKE THE MESH IN HIS ABD HAS TORN LOOSE. Nursing Sepsis Screen: No Definite Risk Source of Information: Patient Exam Limitations: No Limitations History of Present Illness Time Seen by Provider: 12:59 Allergies and Home Medications Allergies Coded Allergies: No Known Drug Allergies (Unverified , 08/16/16) Home Medications Albuterol Sulfate 6.7 Gm Hfa.aer.ad, 2 PUFF IH Q6H PRN for SHORTNESS OF BREATH, #1 Ref 0 Prescribed by: CARINE HAMMOND on 09/13/16 1709 Cetirizine HCl 10 Mg Tablet, 10 MG PO DAILY, (Reported) Clonidine HCl 0.1 Mg Tablet, 0.1 MG PO DAILY, (Reported) Escitalopram Oxalate 10 Mg Tablet, 10 MG PO DAILY, (Reported) Folic Acid 1 Mg Tablet, 1 MG PO DAILY, (Reported) Furosemide 20 Mg Tablet, 20 MG PO DAILY, (Reported) Hydrocodone/Acetaminophen 1 Each Tablet, 1 TAB PO Q6H PRN, #20 Ref 0 Prescribed by: CARIDAD GREEN on 09/03/16 1055 Levofloxacin 500 Mg Tablet, 500 MG PO DAILY, #7 Ref 0 Prescribed by: CARINE HAMMOND on 09/13/16 1709 Pantoprazole Sodium 40 Mg Tablet.dr, 40 MG PO HS, (Reported) Propranolol HCl 20 Mg Tablet, 20 MG PO BID, (Reported) Past Tpfmjov-Fmxvvp-Gnqnlk Hx Patient Social History Alcohol Use: Occasionally Uses Recreational Drug Use: No Drug of Choice: MARIJUANA Smoking Status: Current Everyday Smoker Type Used: Cigarettes Recent Foreign Travel: No Contact w/Someone Who Travel: No Recent Infectious Disease Expo: No Recent Hopitalizations: Yes Immunizations Up To Date Tetanus Booster (TDap): Unknown Seasonal Allergies Seasonal Allergies: Yes Surgeries HX Surgeries: Yes (UMBILICAL HERNIA, SKIN LESION REMOVED FROM NOSE, SHOULDER, AND BACK) Respiratory Hx Respiratory Disorders: Yes Respiratory Disorders: COPD Cardiovascular Hx Cardiac Disorders: Yes Cardiac Disorders: Hypertension Neurological Hx Neurological Disorders: Yes Neurological Disorders: Neuropathy Reproductive System Hx Reproductive Disorders: No Genitourinary Hx Genitourinary Disorders: No Gastrointestinal Hx Gastrointestinal Disorders: Yes (HEP C+) Gastrointestinal Disorders: Gastroesophageal Reflux, Hepatitis Musculoskeletal Hx Musculoskeletal Disorders: Yes (BILAT FEET PAIN) Endocrine Hx Endocrine Disorders: No HEENT HX ENT Disorders: Yes (DENTURES) Loss of Vision: Denies Hearing Impairment: Denies Cancer Hx Cancer: Yes Cancer: Skin Psychosocial Hx Psychiatric Problems: Yes Behavioral Health Disorders: Anxiety, Bipolar, Depression Integumentary HX Skin/Integumentary Disorder: Yes (SKIN LESIONS) Blood Transfusions Hx Blood Disorders: Yes (HEP C+) Adverse Reaction to a Blood Tr: No (N/A) Family Medical History Significant Family History: No Pertinent Family Hx Physical Exam Vital Signs Vital Sign - Last 12Hours 09/20/16 12:37 Temp 97.8 Pulse 71 Resp 16 B/P (MAP) 119/79 Pulse Ox 100 O2 Delivery Room Air Capillary Refill : Less Than 3 Seconds Progress/Results/Core Measures Results/Orders My Orders Orders - CARINE HAMMOND Chest Pa/Lat (2 View) (09/20/16 13:13) Ostomy Appliance: Apply (09/20/16 13:13) Vital Signs/I&O Vital Sign - Last 12Hours 09/20/16 12:37 Temp 97.8 Pulse 71 Resp 16 B/P (MAP) 119/79 Pulse Ox 100 O2 Delivery Room Air Blood Pressure Mean: 92 Diagnostic Imaging Diagonstic Imaging: Xray Plain Films/CT/US/NM/MRI: chest Comments FINDINGS: Heart size and pulmonary vascularity are normal. Lungs are clear. There are no effusions or pneumothoraces. IMPRESSION: Negative chest. Dictated by: Dictated on workstation # [id number] Reviewed: Reviewed by Me (radiology report reviewed by me) Departure Impression Impression: Primary Impression: Open wound of abdominal wall Additional Impression: Ascites Disposition: 01 HOME, SELF-CARE Condition: Improved Departure-Patient Inst. Decision time for Depature: 14:02 Referrals: LAYO BRUNNER DO (PCP) Primary Care Physician LILY LAKHANI (Family) Primary Care Physician Patient Instructions: Fluid in the Belly (Ascites) (DC) Add. Discharge Instructions: All discharge instructions reviewed with patient and/or family. Voiced understanding. Medications as instructed. Continue usual home medications. Dr. Green's nurse will contact you with appointment date and time for paracentesis and radiology as an outpatient. Follow-up with Dr. Delman for recheck. Return to the emergency department for worsened drainage, redness, fever, or any other concerns. Scripts Fluconazole (Diflucan) 100 Mg Tablet 100 MG PO DAILY, #10 TAB 0 Refills Prov: CARINE HAMMOND 09/20/16 Sulfamethoxazole/Trimethoprim (Bactrim Ds Tablet) 1 Each Tablet 1 EACH PO BID, #14 TAB 0 Refills Prov: CARINE HAMMOND 09/20/16 CARINE HAMMOND Sep 20, 2016 12:59
--- NOTE | 2016-09-20 13:38 | Diagnostic Imaging Report ---
INDICATION: Cough and wheezing. EXAMINATION: PA and lateral chest. FINDINGS: Heart size and pulmonary vascularity are normal. Lungs are clear. There are no effusions or pneumothoraces. IMPRESSION: Negative chest. Dictated by: Dictated on workstation # [id number]
[2016-09-20] MEDS ORDERED: FLUC100T PO (14:04)
[2016-09-20] MEDS ORDERED: SULF1TAB35 PO (14:04)
[2016-09-20 15:01] VITALS: BP 117/79
== END 2016-09-20 15:01 | disposition home or self-care (01) ==
LOC: EDUNIT# 12:21 → ER 12:25
DX: T81.4XXA Infection following a procedure, initial encounter (principal); I10 Essential (primary) hypertension; R18.8 Other ascites; Z98.890 Other specified postprocedural states
CPT/HCPCS: 71020; 99281

== ENCOUNTER 2016-09-22 08:56 | Observation (INO) | payer OTHER ==
[~2016-09-22] VITALS: Ht 180.3 cm; Wt 101.2 kg
[~2016-09-22 08:56] MED LIST changes: +FLUC100T PO; +SULF1TAB35 PO
[2016-09-22] MEDS ORDERED: RT-ALBUTEROL/IPRATROPIUM 3 ML (DUONEB) VIAL ONE (09:08)
[2016-09-22] MEDS ORDERED: RT-ALBUTEROL/IPRATROPIUM 3 ML (DUONEB) VIAL INH ONE (09:15)
[2016-09-22 09:39] LABS: BASOPHILS % (AUTO) 0 % (0-10); EOSINOPHILS # (AUTO) 0.1 10^3/uL (0.0-0.3); EOSINOPHILS % (AUTO) 1 % (0-10); LYMPHOCYTES # (AUTO) 1.3 X 10^3 (1.0-4.0); LYMPHOCYTES % (AUTO) 20 % (12-44); MEAN CORPUSCULAR HEMOGLOBIN 25 PG (25-34); MEAN CORPUSCULAR HGB CONC 33 G/DL (32-36); MEAN CORPUSCULAR VOLUME 77 FL (80-99); MONOCYTES # (AUTO) 0.8 X 10^3 (0.0-1.0); MONOCYTES % (AUTO) 12 % (0-12); NEUTROPHILS # (AUTO) 4.4 X 10^3 (1.8-7.8); NEUTROPHILS % (AUTO) 67 % (42-75); PLATELET COUNT 141 10^3/uL (130-400); RED BLOOD COUNT 4.12 10^6/uL (4.35-5.85); RED CELL DISTRIBUTION WIDTH 20.2 % (10.0-14.5); WHITE BLOOD COUNT 6.5 10^3/uL (4.3-11.0)
[2016-09-22 09:52] LABS: INR 1.2 (0.8-1.4); PROTHROMBIN TIME PATIENT 15.3 SEC (12.2-14.7)
--- NOTE | 2016-09-22 09:57 | ED General ---
General Chief Complaint: Abdominal/GI Problems Stated Complaint: ABD PAIN/BLOATING Nursing Triage Note: TO ROOM C/O BEING SOA AND MORE DISTENDED FROM LIVER FAILURE. DRAIN BAG DRAINING DARK YELLOW LIQUID. Nursing Sepsis Screen: No Definite Risk Source of Information: Patient, Old Records Exam Limitations: No Limitations History of Present Illness Time Seen by Provider: 09:00 Initial Comments This 51-year-old man presents to the emergency room by private vehicle with complaints of abdominal discomfort and distention and left sided chest pain. Patient has been having difficulty with ascites from liver failure. He had a peritoneal drain placed that was accidentally removed. He now has an ostomy bag over the drain site. He reports the drainage decreased overnight but then started draining again this morning. In the meantime he had increased ascites. Pain radiates up into the left chest and he has pain with inspiration. He denies any fever. No vomiting or diarrhea. He has shortness of breath with wheezing. He has COPD. He he had a friend drive him one hour from [place], [place] for this ER visit. Allergies and Home Medications Allergies Coded Allergies: No Known Drug Allergies (Unverified , 08/16/16) Home Medications Albuterol Sulfate 6.7 Gm Hfa.aer.ad, 2 PUFF IH Q6H PRN for SHORTNESS OF BREATH, #1 Ref 0 Prescribed by: CARINE HAMMOND on 09/13/16 170 Cetirizine HCl 10 Mg Tablet, 10 MG PO DAILY, (Reported) Clonidine HCl 0.1 Mg Tablet, 0.1 MG PO DAILY, (Reported) Escitalopram Oxalate 10 Mg Tablet, 10 MG PO DAILY, (Reported) Fluconazole 100 Mg Tablet, 100 MG PO DAILY, #10 Ref 0 Prescribed by: CARINE HAMMOND on 09/20/16 1404 Folic Acid 1 Mg Tablet, 1 MG PO DAILY, (Reported) Furosemide 20 Mg Tablet, 20 MG PO DAILY, (Reported) Hydrocodone/Acetaminophen 1 Each Tablet, 1 TAB PO Q6H PRN, #20 Ref 0 Prescribed by: CARIDAD GREEN on 09/03/16 1055 Levofloxacin 500 Mg Tablet, 500 MG PO DAILY, #7 Ref 0 Prescribed by: CARINE HAMMOND on 09/13/16 170 Pantoprazole Sodium 40 Mg Tablet.dr, 40 MG PO HS, (Reported) Propranolol HCl 20 Mg Tablet, 20 MG PO BID, (Reported) Sulfamethoxazole/Trimethoprim 1 Each Tablet, 1 EACH PO BID, #14 Ref 0 Prescribed by: CARINE HAMMOND on 09/20/16 1404 Constitutional: no symptoms reported EENTM: no symptoms reported Respiratory: see HPI Cardiovascular: see HPI Gastrointestinal: see HPI Genitourinary: see HPI Musculoskeletal: no symptoms reported Skin: no symptoms reported Psychiatric/Neurological: No Symptoms Reported Hematologic/Lymphatic: No Symptoms Reported Past Avsjjam-Dnpgna-Daaczq Hx Patient Social History Alcohol Use: Occasionally Uses Recreational Drug Use: No Drug of Choice: MARIJUANA Smoking Status: Current Everyday Smoker Type Used: Cigarettes Recent Foreign Travel: No Contact w/Someone Who Travel: No Recent Infectious Disease Expo: No Recent Hopitalizations: Yes Immunizations Up To Date Tetanus Booster (TDap): Unknown Seasonal Allergies Seasonal Allergies: Yes Surgeries HX Surgeries: Yes (UMBILICAL HERNIA, SKIN LESION REMOVED FROM NOSE, SHOULDER, AND BACK) Surgeries: Abdominal (peritoneal drain, accidentally removed) Respiratory Hx Respiratory Disorders: Yes Respiratory Disorders: COPD Cardiovascular Hx Cardiac Disorders: Yes Cardiac Disorders: Hypertension Neurological Hx Neurological Disorders: Yes Neurological Disorders: Neuropathy Reproductive System Hx Reproductive Disorders: No Genitourinary Hx Genitourinary Disorders: No Gastrointestinal Hx Gastrointestinal Disorders: Yes (HEP C+) Gastrointestinal Disorders: Gastroesophageal Reflux, Liver Disease/Jaundice ( ascites), Hepatitis Musculoskeletal Hx Musculoskeletal Disorders: Yes (BILAT FEET PAIN) Endocrine Hx Endocrine Disorders: No HEENT HX ENT Disorders: Yes (DENTURES) Loss of Vision: Denies Hearing Impairment: Denies Cancer Hx Cancer: Yes Cancer: Skin Psychosocial Hx Psychiatric Problems: Yes Behavioral Health Disorders: Anxiety, Bipolar, Depression Integumentary HX Skin/Integumentary Disorder: Yes (SKIN LESIONS) Blood Transfusions Hx Blood Disorders: Yes (HEP C+) Adverse Reaction to a Blood Tr: No (N/A) Family Medical History Significant Family History: No Pertinent Family Hx Physical Exam Vital Signs Vital Sign - Last 12Hours 09/22/16 09/22/16 09:01 09:33 Temp 98.8 Pulse 114 Resp 18 B/P (MAP) 120/77 Pulse Ox 99 O2 Delivery Room Air O2 Flow Rate 2.00 Capillary Refill : Less Than 3 Seconds General Appearance: WD/WN, Anxious HEENT: PERRL/EOMI, Normal ENT Inspection, Other (oropharynx dry) Neck: Normal Inspection Respiratory: No Accessory Muscle Use, No Respiratory Distress, Wheezing, Other (delayed expiratory phase) Cardiovascular: No Murmur, Tachycardia, Other (left lower chest wall tender to palpation) Gastrointestinal: Normal Bowel Sounds, Soft, Distended, Other (bulging of umbilical hernia) Extremity: Pedal Edema (mild bilateral lower extremity pitting edema), Other ( minimal tenderness to the lower extremities equal bilaterally. No inflammatory changes. Negative Isiah.) Neurologic/Psychiatric: Alert, Oriented x3, No Motor/Sensory Deficits, cordwainer II- XII Norm as Tested, Other (anxious) Skin: Normal Color, Warm/Dry Progress/Results/Core Measures Results/Orders Lab Results Laboratory Tests Test 09/22/16 09:30 09/22/16 09:50 09/22/16 10:05 Range/Units White Blood Count 6.5 4.3-11.0 10^3/uL Red Blood Count 4.12 L 4.35-5.85 10^6/uL Hemoglobin 10.4 L 13.3-17.7 G/DL Hematocrit 32 L 40-54 % Mean Corpuscular Volume 77 L 80-99 FL Mean Corpuscular Hemoglobin 25 25-34 PG Mean Corpuscular Hemoglobin Concent 33 32-36 G/DL Red Cell Distribution Width 20.2 H 10.0-14.5 % Platelet Count 141 130-400 10^3/uL Mean Platelet Volume 10.0 7.4-10.4 FL Neutrophils (%) (Auto) 67 42-75 % Lymphocytes (%) (Auto) 20 12-44 % Monocytes (%) (Auto) 12 0-12 % Eosinophils (%) (Auto) 1 0-10 % Basophils (%) (Auto) 0 0-10 % Neutrophils # (Auto) 4.4 1.8-7.8 X 10^3 Lymphocytes # (Auto) 1.3 1.0-4.0 X 10^3 Monocytes # (Auto) 0.8 0.0-1.0 X 10^3 Eosinophils # (Auto) 0.1 0.0-0.3 10^3/uL Basophils # (Auto) 0.0 0.0-0.1 10^3/uL Prothrombin Time 15.3 H 12.2-14.7 SEC INR Comment 1.2 0.8-1.4 Activated Partial Thromboplast Time 30 24-35 SEC Sodium Level 133 L 135-145 MMOL/L Potassium Level 4.3 3.6-5.0 MMOL/L Chloride Level 106 98-107 MMOL/L Carbon Dioxide Level 19 L 21-32 MMOL/L Anion Gap 8 5-14 MMOL/L Blood Urea Nitrogen 6 L 7-18 MG/DL Creatinine 0.75 0.60-1.30 MG/DL Estimat Glomerular Filtration Rate > 60 BUN/Creatinine Ratio 8 Glucose Level 115 H 70-105 MG/DL Calcium Level 7.7 L 8.5-10.1 MG/DL Magnesium Level 0.9 *L 1.8-2.4 MG/DL Total Bilirubin 1.9 H 0.1-1.0 MG/DL Aspartate Amino Transf (AST/SGOT) 107 H 5-34 U/L Alanine Aminotransferase (ALT/SGPT) 49 0-55 U/L Alkaline Phosphatase 136 40-136 U/L Myoglobin 103.9 H 10.0-92.0 NG/ML Troponin I < 0.30 <0.30 NG/ML C-Reactive Protein High Sensitivity 1.41 H 0.00-0.50 MG/DL Total Protein 5.8 L 6.4-8.2 G/DL Albumin 2.2 L 3.2-4.5 G/DL Glucometer 111 H 70-110 MG/DL Ammonia 31 11-32 UMOL/L My Orders Orders - OFE POSEY MD Albuterol/Ipra Inhalation Soln (Duoneb I (09/22/16 09:08) Cbc With Automated Diff (09/22/16 09:13) Magnesium (09/22/16 09:13) Ekg Tracing (09/22/16 09:13) Cardiac Profile 1 (09/22/16 09:13) Comprehensive Metabolic Panel (09/22/16 09:13) Myoglobin Serum (09/22/16 09:13) Protime With Inr (09/22/16 09:13) Partial Thromboplastin Time (09/22/16:13) O2 (09/22/16 09:13) Monitor-Rhythm Ecg Trace Only (09/22/16 09:13) Lipid Panel (09/23/16 06:00) Saline Lock/Iv-Start (09/22/16 09:13) Chest Pa/Lat (2 View) (09/22/16 09:13) Albuterol/Ipra Inhalation Soln (Duoneb I (09/22/16 09:15) Svn Sm Volume Nebulizer Rt-Rfs (09/22/16 09:13) Hs C Reactive Protein (09/22/16 09:15) Abdomen, Flat & Upright/Decub (09/22/16 09:16) Ammonia (09/22/16 09:50) Magnesium 1 Gm/100 Ml Ivpb (Magnesium Yu (09/22/16 10:30) Alcohol (09/22/16 10:40) Fentanyl Injection (Sublimaze Injection (09/22/16 10:45) Medications Given in ED Current Medications Medications Dose Ordered Sig/Eufemia Route Start Time Stop Time Status Last Admin Dose Admin Albuterol/ Ipratropium 3 ml STK-MED ONCE .ROUTE 09/22/16 09:08 09/22/16 09:13 DC 09/22/16 09:18 3 ML Magnesium Sulfate/ Dextrose 100 ml @ 100 mls/hr ONCE ONCE IV 09/22/16 10:30 09/22/16 11:29 09/22/16 10:37 100 MLS/HR Vital Signs/I&O Vital Sign - Last 12Hours 09/22/16 09/22/16 09/22/16 09:01 09:18 09:33 Temp 98.8 Pulse 114 Resp 18 B/P (MAP) 120/77 Pulse Ox 99 97 O2 Delivery Room Air Nasal Cannula O2 Flow Rate 2.00 Blood Pressure Mean: 91 Progress Note #1: Time: 09:54 Progress Note I was called to the room as patient had a brief episode of confusion and anxiety. He had received a DuoNeb treatment. Breathing had improved but he had been previously tachypneic. He was wearing oxygen at the time. There was no change in rhythm or vital signs. Hyperventilation was suspected. Oxygen was turned off. Patient returned to baseline quickly after my arrival to the room. Labs and x-rays are pending. Fingerstick blood sugar was 111. Progress Note #2: Time: 10:30 Progress Note Patient's magnesium returned critically low. A gram of magnesium is being administered by IV route. I inquired of patient's alcohol consumption. He states he is still consuming alcohol and has had beer as recently as yesterday. Patient's pain has improved somewhat. Nursing staff feels his abdominal distention is improving. He has had a total of 800 mL of ascites drained from his ostomy site, and there is approximately 50 mL of fresh fluid in his ostomy now. Progress Note #3: Time: 10:48 Progress Note Alcohol level was added to labs. Official x-ray reading is still pending. Fentanyl 50 g was administered for pain. Patient will be admitted on telemetry under observation status. Magnesium will be replaced by IV route and troponin and magnesium will be redrawn this afternoon. ECG Initial ECG Impression Date: Sep 22, 2016 Initial ECG Impression Time: 09:12 Initial ECG Rate: 99 Initial ECG Rhythm: Normal Sinus Initial ECG Intervals: Normal Initial ECG Impression: Normal Comment Normal sinus rhythm with no ST elevation or depression. No abnormal intervals. QT interval is borderline. No axis deviation. Diagnostic Imaging Diagonstic Imaging: Xray Plain Films/CT/US/NM/MRI: abdomen, pelvis Comments Abdominal x-rays viewed by me and report reviewed. See report below: NAME: KATY MARIANO [facility] REC#: [id number] PT STATUS: REG ER : 1965 PHYSICIAN: OFE POSEY MD ADMIT DATE: 09/22/16/ER Draft Date of Exam:09/22/16 ABDOMEN, FLAT & UPRIGHT/DECUB INDICATION: Abdominal pain, swelling, and distention resulting in difficulty breathing and chest pain. FINDINGS: There is some air within the stomach, small bowel, and large bowel loops. No gross over dilatation of bowel. No pathological fecal loading. No differential air/fluid levels and no free gas. IMPRESSION: Nonspecific gas pattern. There is air within hollow viscous loops without significant dilatation, air/fluid levels, or free gas. Dictated on workstation # [id number] Dict: 09/22/16 1033 Trans: 09/22/16 1040 [id number] Interpreted by: XAVI MARSHALL Diagonstic Imaging: Xray Plain Films/CT/US/NM/MRI: chest Comments Chest x-ray viewed by me and report reviewed. See report below: NAME: KATY MARIANO [facility] REC#: [id number] PT STATUS: REG ER : 1965 PHYSICIAN: OFE POSEY MD ADMIT DATE: 09/22/16/ER Signed Date of Exam: 09/22/16 CHEST PA/LAT (2 VIEW) PA and lateral views of the chest. INDICATION: Abdominal pain. Shortness of breath. FINDINGS: The lungs are clear. There is pulmonary hyperinflation. The heart size is normal. No effusion or pneumothorax. The mediastinum and shena appear unremarkable. IMPRESSION: Hyperinflated clear lungs. Dictated by: Dictated on workstation # [id number] Dict: 09/22/16 1041 Trans: 09/22/16 1045 Interpreted by: XAVIER VELAZQUEZ MD Electronically signed by: XAVIER VELAZQUEZ MD 09/22/16 1045 Departure Communication Time/Spoke to Admitting Phy: 10:40 Communication Case review with Dr. Masters. She agrees with admission for observation. She was notified that her alcohol level was added once alcohol consumption was revealed. Orders are being written including magnesium replacement by IV route and repeat troponin and magnesium levels. Impression Impression: Primary Impression: Hypomagnesemia Additional Impressions: Ascites Qualified Codes: R18.8 - Other ascites Liver failure Qualified Codes: K72.10 - Chronic hepatic failure without coma Atypical chest pain Abdominal pain Qualified Codes: R10.84 - Generalized abdominal pain COPD exacerbation Disposition: ADMITTED INPATIENT Condition: Improved Decision to Admit Reason: Admit from ER (General) Decision to Admit/Date: Sep 22, 2016 Time/Decision to Admit Time: 10:36 Departure-Patient Inst. Referrals: LAYO BRUNNER DO (PCP) Primary Care Physician LILY LAKHANI (Family) Primary Care Physician OFE POSEY MD Sep 22, 2016 09:57
[2016-09-22 10:02] LABS: ALANINE AMINOTRANSFERASE 49 U/L (0-55); ALBUMIN 2.2 G/DL (3.2-4.5); ANION GAP 8 MMOL/L (5-14); ASPARTATE AMINO TRANSFERASE 107 U/L (5-34); BILIRUBIN,TOTAL 1.9 MG/DL (0.1-1.0); BLOOD UREA NITROGEN 6 MG/DL (7-18); BUN/CREATININE RATIO 8; CALCIUM 7.7 MG/DL (8.5-10.1); CARBON DIOXIDE 19 MMOL/L (21-32); CHLORIDE 106 MMOL/L (98-107); CREATININE SERUM 0.75 MG/DL (0.60-1.30); GFR ESTIMATED > 60; GLUCOSE 115 MG/DL (70-105); POTASSIUM 4.3 MMOL/L (3.6-5.0); SODIUM 133 MMOL/L (135-145); TOTAL PROTEIN 5.8 G/DL (6.4-8.2)
[2016-09-22 10:11] LABS: MYOGLOBIN SERUM 103.9 NG/ML (10.0-92.0)
[2016-09-22 10:15] LABS: MAGNESIUM 0.9 MG/DL (1.8-2.4)
[2016-09-22] MEDS ORDERED: MAGNESIUM 1 GM/100 ML IVPB 100 ML IV ONE (10:30)
--- NOTE | 2016-09-22 10:41 | Diagnostic Imaging Report ---
INDICATION: Abdominal pain, swelling, and distention resulting in difficulty breathing and chest pain. FINDINGS: There is some air within the stomach, small bowel, and large bowel loops. No gross over dilatation of bowel. No pathological fecal loading. No differential air/fluid levels and no free gas. IMPRESSION: Nonspecific gas pattern. There is air within hollow viscous loops without significant dilatation, air/fluid levels, or free gas. Dictated by: Dictated on workstation # [id number]
--- NOTE | 2016-09-22 10:44 | Diagnostic Imaging Report ---
PA and lateral views of the chest. INDICATION: Abdominal pain. Shortness of breath. FINDINGS: The lungs are clear. There is pulmonary hyperinflation. The heart size is normal. No effusion or pneumothorax. The mediastinum and shena appear unremarkable. IMPRESSION: Hyperinflated clear lungs. Dictated by: Dictated on workstation # [id number]
[2016-09-22] MEDS ORDERED: fentaNYL INJECTION 100 MCG/2 ML AMP IVP ONE (10:45)
[2016-09-22] MEDS ORDERED: CATHETER FLUSH 10 ML SYR IV PRN (11:45)
[2016-09-22] MEDS ORDERED: RT-ALBUTEROL SULF 2.5 MG/3 ML PRE-MIX VIAL IH PRN (11:45)
[2016-09-22 12:00] VITALS: BP 131/82
[2016-09-22] MEDS: MAGNESIUM 1 GM/D5W 100 ML IVPB IV SCH ×3 (12:39→14:45)
--- NOTE | 2016-09-22 12:39 | History & Physicial ([facility]) ---
ZANDERMICHAELA MED STUDENT 09/22/16 1239: HPI History of Present Illness: CC= "abdominal pain" The patient is a 51 year old male who presents in the ED today in mild distress due to complaints of abdominal pain and chest pain. The abdominal pain began one month ago around the time of his umbilical hernia repair. The patient describes the pain as a diffuse pressure sensation that extends from his umbilicus to his nipple line. The pain also extends through to his back. The patient rates the pain as a 10/10. The severity has fluctuated over the past month. The patient describes that taking a half a hydrocodone as well as a few neurontins has helped alleviate the pain. The pain is exacerbated when the patient urinates. Past medical history is significant for hepatitis C diagnosed in 2007 as well as cirrhosis diagnosed one month ago. Patient has a colostomy bag in his RLQ. Patient states one month ago he began to cut back his alcohol intake. Prior to one month ago he would consume a six-pack a day. Additionally, the patient complains of chest pain. The pain began around 7 AM this morning and the patient characterizes the pain as sharp. The pain was localized to his left chest and did not extend down his arm or to his jaw. The patient denies sweating. Pertinent positives include heart palpitations and SOB. Source: patient Exam Limitations: no limitations Date seen by provider: Sep 22, 2016 Time seen by provider: 10:30 Attending Physician Anne-Marie Marquez MD PCP Joi Darby DO Consult Date of Admission Sep 22, 2016 at 10:44 Home Medications Home Medications Reviewed patient Home Medication Reconciliation Form Allergies Coded Allergies: No Known Drug Allergies (Unverified , 08/16/16) IKV-Yyhbjp-Nqhkek Hx Patient Social History Number of Children: 1 Number of living children: 1 Employed/Student: unemployed Alcohol Use: Occasionally Uses (cut down one month ago to a few beers a week, previously had a six pack a day) Recreational Drug Use: Yes Drug of Choice: MARIJUANA Smoking Status: Current Everyday Smoker (0.5 pack a day for the past 40 years) Type Used: Cigarettes Recent Foreign Travel: No Contact w/other who traveled: No Recent Hopitalizations: Yes (umbillical hernia repair one month ago ) Recent Infectious Disease Expo: No Physical Abuse Screen: No Sexual Abuse: No Immunizations Up To Date Tetanus Booster (TDap): Unknown Past Medical History Hepatitis C dx in 2007 cirrhosis skin cancer on nose and shoulder Family Medical History Significant Family History: COPD (mother), CVA (paternal grandfather), Diabetes (brother), Psychiatric Problems (brother) Family History: Alcoholism Arthritis Cataracts Completed stroke Deafness or hearing loss Diabetes mellitus Drug abuse Gastroenteritis Headache disorder Hypertension Psychosocial problem Respiratory disorder Review of Systems ([facility]) Time Seen by Provider: 10:30 Constitutional: weight loss EENTM: blurred vision Respiratory: short of breath Cardiovascular: chest pain, edema, palpitations Gastrointestinal: abdominal pain Musculoskeletal: back pain Skin: hx of skin cancer Psychiatric/Neurological: Headache Physical Exam-([facility]) Physical Exam Vital Signs VS - Last 72 Hours, by Label 09/22/16 09/22/16 09/22/16 09/22/16 09:01 09:18 09:33 11:13 Temp 98.8 Pulse 114 94 Resp 18 18 B/P (MAP) 120/77 Pulse Ox 99 97 99 O2 Delivery Room Air Nasal Cannula O2 Flow Rate 2.00 Capillary Refill : Less Than 3 Seconds General Appearance: mild distress Respiratory: chest non-tender, normal breath sounds, no respiratory distress, no accessory muscle use Gastrointestinal: distended Extremities: pedal edema Neurologic/Psychiatric: depressed affect Assessment/Plan Assessment/Plan Admission Dx 1.cirrhosis/portal hypertension 2. ascites secondary to #1 3. suspected bacterial peritonitis 4. hyponatremia 5. hypomagnesemia 6. anemia 7. depression Plan 1.cirrhosis/portal hypertension -serum AFP to look for elevation indicative of HCC -pet counselor on alcohol abstinence -review medication dosing 2. ascites secondary to #1 -sodium restriction -diuretics -paracentesis 3. suspected bacterial peritonitis -ascitic fluid bacterial culture to look for elevated ascitic fluid absolute PMN leukocyte count -consider stopping beta-sasha 4. hyponatremia -consider treatment if serum sodium falls below 120 meq/L 5. hypomagnesemia -1 to 2 grams of magnesium sulfate in 50 to 100 mL of 5 percent dextrose in water, given over 5 to 60 minutes followed by an infusion (4 to 8 g magnesium sulfate over 12 to 24 hours), repeat as needed 6. anemia -likely due to liver disease, monitor -consider looking for occult blood to rule out colonic malignancy 7. depression -screen for depression, mentioned suicidal ideation Diagnosis/Problems: Clinical Quality Measures DVT/VTE Risk/Contraindication: Risk Factor Score Per Nursin RFS Level Per Nursing on Admit: 1=Low/No VTE PPX ANNE-MARIE MARQUEZ MD 09/22/168: HPI History of Present Illness: 51 yo male presented with abdominal pain and chest pain with recent dislodging of paracentesis drain (not colostomy), the resulting ostomy was initially draining ascitic fluid, then stopped for a while but is draining yellow thin fluid again. He states he thinks he may have torn his hernia mesh with the increased ascites. Time seen by provider: 11:40 Home Medications Allergies Coded Allergies: No Known Drug Allergies (Unverified , 08/16/16) Review of Systems ([facility]) Date Seen by Provider: Sep 22, 2016 Time Seen by Provider: 11:40 Reviewed Test Results Reviewed Test Results Lab Laboratory Tests Test 09/22/16 09:30 09/22/16 09:50 09/22/16 10:05 09/22/16 12:16 Range/Units White Blood Count 6.5 4.3-11.0 10^3/uL Red Blood Count 4.12 L 4.35-5.85 10^6/uL Hemoglobin 10.4 L 13.3-17.7 G/DL Hematocrit 32 L 40-54 % Mean Corpuscular Volume 77 L 80-99 FL Mean Corpuscular Hemoglobin 25 25-34 PG Mean Corpuscular Hemoglobin Concent 33 32-36 G/DL Red Cell Distribution Width 20.2 H 10.0-14.5 % Platelet Count 141 130-400 10^3/uL Mean Platelet Volume 10.0 7.4-10.4 FL Neutrophils (%) (Auto) 67 42-75 % Lymphocytes (%) (Auto) 20 12-44 % Monocytes (%) (Auto) 12 0-12 % Eosinophils (%) (Auto) 1 0-10 % Basophils (%) (Auto) 0 0-10 % Neutrophils # (Auto) 4.4 1.8-7.8 X 10^3 Lymphocytes # (Auto) 1.3 1.0-4.0 X 10^3 Monocytes # (Auto) 0.8 0.0-1.0 X 10^3 Eosinophils # (Auto) 0.1 0.0-0.3 10^3/uL Basophils # (Auto) 0.0 0.0-0.1 10^3/uL Prothrombin Time 15.3 H 12.2-14.7 SEC INR Comment 1.2 0.8-1.4 Activated Partial Thromboplast Time 30 24-35 SEC Sodium Level 133 L 135-145 MMOL/L Potassium Level 4.3 3.6-5.0 MMOL/L Chloride Level 106 98-107 MMOL/L Carbon Dioxide Level 19 L 21-32 MMOL/L Anion Gap 8 5-14 MMOL/L Blood Urea Nitrogen 6 L 7-18 MG/DL Creatinine 0.75 0.60-1.30 MG/DL Estimat Glomerular Filtration Rate > 60 BUN/Creatinine Ratio 8 Glucose Level 115 H 70-105 MG/DL Calcium Level 7.7 L 8.5-10.1 MG/DL Magnesium Level 0.9 *L 1.8-2.4 MG/DL Total Bilirubin 1.9 H 0.1-1.0 MG/DL Aspartate Amino Transf (AST/SGOT) 107 H 5-34 U/L Alanine Aminotransferase (ALT/SGPT) 49 0-55 U/L Alkaline Phosphatase 136 40-136 U/L Myoglobin 103.9 H 10.0-92.0 NG/ML Troponin I < 0.30 <0.30 NG/ML C-Reactive Protein High Sensitivity 1.41 H 0.00-0.50 MG/DL Total Protein 5.8 L 6.4-8.2 G/DL Albumin 2.2 L 3.2-4.5 G/DL Glucometer 111 H 70-110 MG/DL Ammonia 31 11-32 UMOL/L Serum Alcohol < 10 <10 MG/DL Body Fluid Source PERITON Body Fluid Color PALE YELLOW Body Fluid Appearance SLT CLDY Body Fluid WBC 140 /uL Body Fluid RBC 63 /uL Body Fluid Polynuclear WBCs 28 % Body Fluid Mononuclear WBCs % Body Fluid Lymphocytes 72 % Body Fluid Other Cells % Body Fluid Total Protein < 0.8 G/DL Body Fluid Albumin < 0.4 G/DL Test 09/22/16 14:52 Range/Units Magnesium Level 1.7 L 1.8-2.4 MG/DL Troponin I < 0.30 <0.30 NG/ML Physical Exam-([facility]) Physical Exam Vital Signs VS - Last 72 Hours, by Label 09/22/16 09/22/16 09/22/16 09/22/16 09:01 09:18 09:33 11:13 Temp 98.8 Pulse 114 94 Resp 18 18 B/P (MAP) 120/77 Pulse Ox 99 97 99 O2 Delivery Room Air Nasal Cannula O2 Flow Rate 2.00 09/22/16 09/22/16 09/22/16 09/22/16 12:00 15:46 19:00 19:55 Temp 97.6 100.2 Pulse 85 85 93 Resp 24 24 B/P (MAP) 131/82 131/82 Pulse Ox 99 99 98 General Appearance: no apparent distress Respiratory: lungs clear, normal breath sounds Cardiovascular: regular rate, rhythm, no murmur Gastrointestinal: normal bowel sounds, hernia (umbilical), other (mild tenderness throughout, marked ascites) Neurologic/Psychiatric: alert, normal mood/affect Skin: normal color, warm/dry Supervisory-Addendum Brief Supervisory Addendum Patient seen and examined with MSKeila Fermin. See additional documentation for my HPI and physical exam. 51 yo male with chest pain- negative troponin, repeat. Abdominal pain with cirrhosis and ascites- check ascitic fluid for SBP although not likely based on exam or vitals so will hold off on antibiotics until results. Recent dislodging of ascites drain and report of scheduled procedure tomorrow for replacement- consult Dr. Treadwell who placed original drain. Hypomagnesemia- replace and recheck. Cellulitis- ER visit on 09/20 after tube dislodged was started on Bactrim (wound culture with staph aureus and klebsiella sensitive to bactrim) will continue. MICHAELA FERMIN MED STUDENT Sep 22, 2016 12:39 ANNE-MARIE MARQUEZ MD Sep 22, 2016 20:48
[2016-09-22 12:52] LABS: TOTAL PROTEIN,BODY FLUID < 0.8 G/DL
[2016-09-22] MEDS ORDERED: SULF1TAB35 PO (13:36)
[2016-09-22] MEDS ORDERED: FLUC100T6 PO (13:36)
[2016-09-22] MEDS ORDERED: GABA-488 PO ×2 (13:36)
[2016-09-22 15:12] LABS: MAGNESIUM 1.7 MG/DL (1.8-2.4)
[2016-09-22 15:24] LABS: TROPONIN I < 0.30 NG/ML (<0.30)
[2016-09-22 15:46] VITALS: BP 131/82
[2016-09-22] MEDS: CATHETER FLUSH 10 ML SYR IV SCH ×2 (15:48→21:21)
[2016-09-22] MEDS: fentaNYL INJECTION 100 MCG/2 ML AMP IVP PRN ×2 (16:09→21:34)
[2016-09-22 20:00] VITALS: BP 123/74
[2016-09-22] MEDS ORDERED: NON-FORMULARY MEDICATION 1 EA EA (Cetirizine HCl (Zyrtec) 10 MG) PO PRN (20:45)
[2016-09-22] MEDS ORDERED: PANTOPRAZOLE 40 MG (PROTONIX) TAB PO SCH (21:00)
[2016-09-22] MEDS ORDERED: GABAPENTIN 300 MG (NEURONTIN) CAP PO SCH (21:00)
[2016-09-22] MEDS: MAGNESIUM 1 GM/100 ML IVPB 100 ML IV SCH ×2 (21:20→22:20)
[2016-09-22] MEDS: TRIM/SULFAMETH 160/800 (SEPTRA DS) TAB PO SCH (21:20)
[2016-09-22 23:45] VITALS: BP 112/75
[2016-09-23 04:13] VITALS: BP 121/74
[2016-09-23] MEDS: fentaNYL INJECTION 100 MCG/2 ML AMP IVP PRN ×4 (05:48→13:37)
[2016-09-23] MEDS: CATHETER FLUSH 10 ML SYR IV SCH ×2 (05:48→13:37)
[2016-09-23 06:57] LABS: RED BLOOD COUNT 4.43 10^6/uL (4.35-5.85); RED CELL DISTRIBUTION WIDTH 20.9 % (10.0-14.5); WHITE BLOOD COUNT 11.2 10^3/uL (4.3-11.0)
[2016-09-23 07:20] LABS: ALANINE AMINOTRANSFERASE 49 U/L (0-55); ALBUMIN 2.3 G/DL (3.2-4.5); ANION GAP 9 MMOL/L (5-14); ASPARTATE AMINO TRANSFERASE 102 U/L (5-34); BILIRUBIN,TOTAL 2.6 MG/DL (0.1-1.0); BLOOD UREA NITROGEN 8 MG/DL (7-18); BUN/CREATININE RATIO 10; CARBON DIOXIDE 18 MMOL/L (21-32); CHLORIDE 104 MMOL/L (98-107); GFR ESTIMATED > 60; GLUCOSE 110 MG/DL (70-105); MAGNESIUM 1.8 MG/DL (1.8-2.4); POTASSIUM 4.1 MMOL/L (3.6-5.0); SODIUM 131 MMOL/L (135-145); TOTAL PROTEIN 6.1 G/DL (6.4-8.2)
[2016-09-23 07:46] LABS: CHOLESTEROL 106 MG/DL (< 200); DIRECT LDL 59 MG/DL (1-129); TRIGLYCERIDES 81 MG/DL (<150); VLDL CHOLESTEROL 16 MG/DL (5-40)
[2016-09-23] MEDS: TRIM/SULFAMETH 160/800 (SEPTRA DS) TAB PO SCH (08:04)
[2016-09-23 08:36] VITALS: BP 134/88
--- NOTE | 2016-09-23 08:58 | Progress Note (SOAP) ---
LUANA FERMIN MED STUDENT 09/23/16 0858: Subjective Subjective/Events-last exam The patient presents today in no acute distress. Patient states that he still has abdominal pain but it has improved since yesterday. The pain is localized to his lower abdomen where he has a reducible umbilical hernia. The patient characterizes the pain as a "dull thud" that worsens with pressure. The pain is a 6/10. The patient's ascitic fluid has been successfully draining in his peritoneal ostomy bag. The patient states that when he walks he is able to drain more fluid into the bag. The patient's chest pain has resolved. The patient states that he has sharp pain in his lower back that spreads to both hips as well. The patient rates the pain as a 8/10. The patient states that he is ready to quit drinking. Review of Systems Date Seen by Provider: Sep 23, 2016 Time Seen by Provider: 08:20 HEENT: Other (dry mouth) Gastrointestinal: Abdominal Pain, Diarrhea (watery diarrhea after taking ABX) Musculoskeletal: back pain, other (purple lesions on L heal, pt states that the lesions spread over his entire foot and has receded ) Objective Exam Last Set of Vital Signs Vital Signs Date Time Temp Pulse Resp B/P (MAP) Pulse Ox O2 Delivery O2 Flow Rate FiO2 09/23/16 08:36 96.9 106 20 134/88 98 09/22/16 09:33 Nasal Cannula 2.00 Capillary Refill : Less Than 3 Seconds I&O Bad tableGeneral: Alert, Oriented X3, Cooperative, No Acute Distress HEENT: Mucous Memb Moist/[place] Lungs: Clear to Auscultation, Normal Air Movement Heart: Regular Rate, Normal S1, Normal S2, No Murmurs Abdomen: Other (mild tenderness around umbillical hernia ) Extremities: Other (edema over his shins) Skin: Other (on L foot there are bluish-purple lesions ) Psych/Mental Status: Mental Status NL, Mood NL Results/Procedures Lab Bad table Assessment/Plan Assessment/Plan Admission Dx 1.cirrhosis/portal hypertension 2. ascites secondary to #1 3. hyponatremia 4. anemia 5. low HDL Plan 1.cirrhosis/portal hypertension -counseling department chair on alcohol abstinence -review medication dosing 2. ascites secondary to #1 -sodium restriction -diuretics -paracentesis -continue draining the ascitic fluid via the peritoneal ostomy bag 3. suspected bacterial peritonitis- resolved -no longer suspect SBP due to resolving abdominal pain and negative fever -ascitic fluid PMN cell count is not indicative of SBP 4. hyponatremia -consider treatment if serum sodium falls below 120 meq/L 5. hypomagnesemia- resolved -resolved, magnesium increased from 0.9 to 1.8 -continue to monitor and repeat if needed 6. anemia -likely due to liver disease, monitor -consider looking for occult blood to rule out colonic malignancy 7. alcoholism -in the preparation stage, ready to stop drinking Diagnosis/Problems: Clinical Quality Measures DVT/VTE Risk/Contraindication: Risk Factor Score Per Nursin RFS Level Per Nursing on Admit: 1=Low/No VTE PPX KELLY PETERS MD 09/23/16 1901: Assessment/Plan Assessment/Plan Plan Agree with above assessment and plan by Luana (medical student). Saw and evaluated patient with MS. Please see Discharge summary. Diagnosis/Problems: LUANA FERMIN MED STUDENT Sep 23, 2016 08:58 KELLY PETERS MD Sep 23, 2016 19:01
[2016-09-23] MEDS ORDERED: FUROSEMIDE 20 MG (LASIX) TAB PO SCH (09:00)
[2016-09-23] MEDS ORDERED: LORATADINE (CLARITIN) 10 MG TAB PO PRN (09:00)
[2016-09-23] MEDS ORDERED: GABAPENTIN 300 MG (NEURONTIN) CAP PO SCH (09:00)
[2016-09-23] MEDS ORDERED: FOLIC ACID 1 MG TAB PO SCH (09:00)
[2016-09-23] MEDS ORDERED: LIDOCAINE 1% INJ 20 ML (XYLOCAINE) VIAL ONE (09:14)
[2016-09-23 11:29] LABS: ALANINE AMINOTRANSFERASE 43 U/L (0-55); ANION GAP 6 MMOL/L (5-14); ASPARTATE AMINO TRANSFERASE 83 U/L (5-34); BILIRUBIN,TOTAL 2.2 MG/DL (0.1-1.0); BLOOD UREA NITROGEN 9 MG/DL (7-18); BUN/CREATININE RATIO 11; CALCIUM 7.6 MG/DL (8.5-10.1); CARBON DIOXIDE 20 MMOL/L (21-32); CHLORIDE 103 MMOL/L (98-107); CREATININE SERUM 0.81 MG/DL (0.60-1.30); GFR ESTIMATED > 60; GLUCOSE 115 MG/DL (70-105); MAGNESIUM 1.7 MG/DL (1.8-2.4); POTASSIUM 4.3 MMOL/L (3.6-5.0); SODIUM 129 MMOL/L (135-145); TOTAL PROTEIN 5.4 G/DL (6.4-8.2)
[2016-09-23 12:36] VITALS: BP 105/71
--- NOTE | 2016-09-23 13:08 | Discharge Instructions ---
Discharge Inst-[facility] Discharge Medications New, Converted or Re-Newed RX: Other (No new scripts) Continued Medications: Cetirizine HCl (Zyrtec) 10 Mg Tablet 10 MG PO DAILY PRN for ALLERGIES, TAB Folic Acid (Folic Acid) 1 Mg Tablet 1 MG PO DAILY, TAB Furosemide (Furosemide) 20 Mg Tablet 20 MG PO DAILY, TAB Gabapentin (Gabapentin) 300 Mg Capsule 300 MG PO DAILY, CAP Gabapentin (Gabapentin) 300 Mg Capsule 600 MG PO HS, CAP TAKES 2 (300 MG) CAPSULES Pantoprazole Sodium (Protonix) 40 Mg Tablet.dr 40 MG PO HS, TAB Sulfamethoxazole/Trimethoprim (Bactrim Ds Tablet) 1 Each Tablet 1 TAB PO BID, TAB FILLED 09/20/16 #14 FOR A 7 DAY THERAPY Discontinued Medications: Clonidine HCl (Clonidine HCl) 0.1 Mg Tablet 0.1 MG PO DAILY, TAB Fluconazole (Fluconazole) 100 Mg Tablet 100 MG PO DAILY, TAB FILLED 09/20/16 #10 FOR A 10 DAY THERAPY Patient Instructions Goal/Follow Up Appt: You have a follow up with your PCP Gabi Logan on September 29 @ 240 pm - Make sure you call and schedule follow up appt with your surgeon Dr Treadwell Patient Instructions: - Discussed the importance of alcohol cessation - Strict 2000 mg low salt diet Return to The Hospital For: - Fevers or chills - Increasing pain - Chest pain - Shortness of breath Activity & Diet Discharge Diet: Low Sodium Diet, Cardiac Diet Activity as Tolerated: Yes Orders-Post D/C & Referrals Pneu Vac Indicated: Yes Copy Copies To 1: [facility] Gabi Victor HOLLY R MD Sep 23, 2016 13:08
[2016-09-23] MEDS ORDERED: HYDR-757 PO (13:21)
--- NOTE | 2016-09-23 18:58 | Discharge Summary ---
Diagnosis/Chief Complaint Date of Admission Sep 22, 2016 at 11:33 Date of Discharge Sep 23, 2016 at 13:03 Admission Diagnosis Admission Diagnosis 1.cirrhosis/portal hypertension 2. ascites secondary to #1 3. hyponatremia 4. anemia 5. low HDL Discharge Diagnosis See Above Chief Complaint/HPI Chief Complaint/HPI 51 yo male presented with abdominal pain and chest pain with recent dislodging of paracentesis drain (not colostomy), the resulting ostomy was initially draining ascitic fluid, then stopped for a while but is draining yellow thin fluid again. He states he thinks he may have torn his hernia mesh with the increased ascites. Discharge Summary-Simple/Stand Procedures Replaced Peritoneal drain by Radiology Consultations Dr Treadwell: General Surgery Discharge Physical Examination Allergies: Coded Allergies: No Known Drug Allergies (Unverified , 08/16/16) Vitals & I&Os Vital Sign - Last 12Hours Date Time Temp Pulse Resp B/P (MAP) Pulse Ox O2 Delivery O2 Flow Rate FiO2 09/23/16 14:50 09/23/16 12:36 99.3 91 20 98 09/22/16 09:33 Nasal Cannula 2.00 Intake and Output 09/23/16 00:00 Intake Total 1040 ml Output Total 1200 ml Balance -160 ml General Appearance: Alert, Oriented X3, Cooperative, No Acute Distress HEENT: Atraumatic, Mucous Memb Moist/[place] Respiratory: Clear to Auscultation, Normal Air Movement Cardiovascular: Regular Rate, No Murmurs Abdominal: Other (+ Hepatosplenomegaly, + Ascites, soft, tense abdomen, mildly tender around umbilical hernia site) Extremities: Other (trace edema) Skin: No Rashes, Other (Ostomy bag on RLQ draining ascitic fluid from previous site of drain) Neuro: Normal Gait, Normal Speech, Strength at 5/5 X4 Ext, Sensation Intact, Cranial Nerves 3-12 NL Psych/Mental Status: Mental Status NL, Mood NL Hospital Course See final discharge diagnosis. Labs Peritoneal fluid with not signs of SBP Discussion & Recommendations 51 yo M with known cirrhosis of the liver admitted with worsening abdominal pain End Stage Liver Dz: Patient has drain replaced and is draining large amounts of ascitic fluid. Limit fluid output to 3L every other day. Patient may need to clamp drain as too much fluid can cause electrolyte abnormalities. Patient had electrolytes replaced while admitted. Discussed long term acute care registered nurse goals and patient states that he is ready to start alcohol treatment. Will need close follow up with drain in place to ensure that too much fluid is not taken off. Alcoholism: Patient received thiamine and folate replacement. Expressed interest in getting into outpatient treatment. Start daily multi vitamin. Hepatitis C: Will need treatment after alcohol treatment and cessation for 6 months. Anemia: Likely 2/2 liver disease. Will need workup outpatient. Discharge Condition at discharge Guarded Instructions to patient/family Please see electonic discharge instructions given to patient. Discharge Medications Reviewed and agree with Discharge Medication list on patient's Discharge Instruction sheet Clinical Quality Measures DVT/VTE Risk/Contraindication: Risk Factor Score Per Nursin RFS Level Per Nursing on Admit: 1=Low/No VTE PPX Copy Copies To 1: [facility] Gabi Victor HOLLY R MD Sep 23, 2016 18:58
== END 2016-09-23 13:03 | disposition home or self-care (01) ==
LOC: EDUNIT# 08:56 → ER 08:58 → UNDOADMOB 10:44 → 4TH 10:44 → UNDODISOB 09-23 14:50
PROVIDERS: ADMIT Family Medicine; ATTEND Family Medicine
DX: K70.31 Alcoholic cirrhosis of liver with ascites (principal); K70.11 Alcoholic hepatitis with ascites; F10.20 Alcohol dependence, uncomplicated; K76.6 Portal hypertension; J44.1 Chronic obstructive pulmonary disease with (acute) exacerbation; E87.1 Hypo-osmolality and hyponatremia; E83.42 Hypomagnesemia; D63.8 Anemia in other chronic diseases classified elsewhere; F17.210 Nicotine dependence, cigarettes, uncomplicated; I10 Essential (primary) hypertension; K21.9 Gastro-esophageal reflux disease without esophagitis; K42.9 Umbilical hernia without obstruction or gangrene; F32.9 Major depressive disorder, single episode, unspecified; F12.10 Cannabis abuse, uncomplicated; Z93.3 Colostomy status
CPT/HCPCS: 36415; 71020; 74020; 80053; 80061; 80320; 82042; 82140; 82962; 83735; 83874; 84100; 84157; 84484; 85025; 85027; 85610; 85730; 86141; 87070; 87186; 87205; 89051; 93005; 93041; 94640; 94760; 99211; G0378

== ENCOUNTER 2016-09-27 09:00 | Emergency (ER) | payer SELFPAY ==
[~2016-09-27] VITALS: Ht 177.8 cm; Wt 90.7 kg
[~2016-09-27 09:00] MED LIST changes: +FLUC100T6 PO; +GABA-488 PO; +HYDR-757 PO
[2016-09-27] MEDS ORDERED: ONDANSETRON 4 MG (ZOFRAN) ORAL DISSOLVE TAB SL ONE (10:00)
--- NOTE | 2016-09-27 10:15 | Diagnostic Imaging Report ---
PROCEDURE: US Abdomen, limited. TECHNIQUE: Multiple realtime grayscale images were obtained over the abdomen in various projections. INDICATION: Ascites followup. FINDINGS: There is still a prominent amount of fluid in the peritoneal cavity. IMPRESSION: Moderate ascites is seen. Dictated by: Dictated on workstation # [id number]
--- NOTE | 2016-09-27 10:20 | ED GI ---
General Chief Complaint: Catheter/Drain/Tube Problems Stated Complaint: RETAINING FLUID IN ABD Nursing Triage Note: ARRIVED VIA AMB TO ROOM 07. STATES DRAIN ON LEFT ABD HAS SLOWED DOWN WITH COLLECTION OF FLUID AND HIS ABD IS STARTING TO HURT. PT HAS BEEN IN ER MULTIPLE TIMES OVER THE LAST MONTH WITH DRAIN ISSUES. Sepsis Screen: No Definite Risk Source of Information: Patient Exam Limitations: No Limitations History of Present Illness Time Seen By Provider: 09:10 Initial Comments This 51-year-old gentleman with liver failure presents to the emergency room with complications with his paracentesis drain. His original drain was accidentally removed. He then had the drain replaced already to [address] Burgos. He reports the drain stopped producing fluid about 24 hours ago and he is concerned it is occluded. He has had development of tight ascites since then. Allergies and Home Medications Allergies Coded Allergies: No Known Drug Allergies (Unverified , 08/16/16) Home Medications Cetirizine HCl 10 Mg Tablet, 10 MG PO DAILY PRN for ALLERGIES, (Reported) Folic Acid 1 Mg Tablet, 1 MG PO DAILY, (Reported) Furosemide 20 Mg Tablet, 20 MG PO DAILY, (Reported) Gabapentin 300 Mg Capsule, 300 MG PO DAILY, (Reported) Gabapentin 300 Mg Capsule, 600 MG PO HS, (Reported) TAKES 2 (300 MG) CAPSULES Hydrocodone/Acetaminophen 1 Each Tablet, 1 EACH PO TID for 14 Days, #42 Prescribed by: KELLY PETERS on 09/23/16 1321 Pantoprazole Sodium 40 Mg Tablet.dr, 40 MG PO HS, (Reported) Sulfamethoxazole/Trimethoprim 1 Each Tablet, 1 TAB PO BID, (Reported) FILLED 09/20/16 #14 FOR A 7 DAY THERAPY Review of Systems Constitutional: no symptoms reported EENTM: No Symptoms Reported Respiratory: No Symptoms Reported Cardiovascular: No Symptoms Reported Gastrointestinal: See HPI Genitourinary: No Symptoms Reported Musculoskeletal: no symptoms reported Skin: no symptoms reported Psychiatric/Neurological: No Symptoms Reported Endocrine: No Symptoms Reported Past Yrlkdlm-Fbnyvg-Pnvlrr Hx Patient Social History Alcohol Use: Occasionally Uses Recreational Drug Use: No (STATES NO DRUG USE AT THIS VISIT. ) Drug of Choice: MARIJUANA Smoking Status: Current Everyday Smoker Type Used: Cigarettes Recent Foreign Travel: No Contact w/Someone Who Travel: No Recent Infectious Disease Expo: No Recent Hopitalizations: Yes (umbillical hernia repair one month ago ) Immunizations Up To Date Tetanus Booster (TDap): Unknown Seasonal Allergies Seasonal Allergies: Yes Surgeries HX Surgeries: Yes (UMBILICAL HERNIA, SKIN LESION REMOVED FROM NOSE, SHOULDER, AND BACK, paracentesis draining) Surgeries: Abdominal, Orthopedic Respiratory Hx Respiratory Disorders: Yes Respiratory Disorders: COPD Cardiovascular Hx Cardiac Disorders: Yes Cardiac Disorders: Hypertension Neurological Hx Neurological Disorders: Yes Neurological Disorders: Neuropathy Reproductive System Hx Reproductive Disorders: No Genitourinary Hx Genitourinary Disorders: No Gastrointestinal Hx Gastrointestinal Disorders: Yes (HEP C+) Gastrointestinal Disorders: Gastroesophageal Reflux, Liver Disease/Jaundice, Hepatitis Musculoskeletal Hx Musculoskeletal Disorders: Yes (BILAT FEET PAIN) Endocrine Hx Endocrine Disorders: No HEENT HX ENT Disorders: Yes (DENTURES) Loss of Vision: Denies Hearing Impairment: Denies Cancer Hx Cancer: Yes Cancer: Skin Psychosocial Hx Psychiatric Problems: Yes Behavioral Health Disorders: Anxiety, Bipolar, Depression Integumentary HX Skin/Integumentary Disorder: Yes (SKIN LESIONS) Blood Transfusions Hx Blood Disorders: Yes (HEP C+) Adverse Reaction to a Blood Tr: No (N/A) Family Medical History Significant Family History: COPD, CVA, Diabetes, Psychiatric Problems Family Medial History: Alcoholism Arthritis Cataracts Completed stroke Deafness or hearing loss Diabetes mellitus Drug abuse Gastroenteritis Headache disorder Hypertension Psychosocial problem Respiratory disorder Physical Exam Vital Signs VS - Last 72 Hours, by Label 09/27/16 09/27/16 09:12 10:29 Temp 97.9 97.9 Pulse 71 71 Resp 16 16 B/P (MAP) 101/76 Pulse Ox 98 98 Capillary Refill : Less Than 3 Seconds General Appearance: WD/WN, no apparent distress HEENT: PERRL/EOMI, normal ENT inspection Respiratory: lungs clear, normal breath sounds, no respiratory distress, no accessory muscle use Cardiovascular: regular rate, rhythm, no edema, no murmur Gastrointestinal: distended, No tenderness, other (intact paracentesis drain on the left. Old drain site on the right is a well-healing with a small amount of granulation tissue and serous drainage.) Neurologic/Psychiatric: vp genetic II-XII nml as tested, no motor/sensory deficits, alert, normal mood/affect, oriented x 3 Skin: normal color, warm/dry, other (see above) Progress/Results/Core Measures Results/Orders My Orders Orders - OFE POSEY MD Abdomen Limited [id number] (09/27/16 09:20) Ondansetron Oral Dissolve Tab (Zofran (09/27/16 10:00) Medications Given in ED Current Medications Medications Dose Ordered Sig/Eufemia Route Start Time Stop Time Status Last Admin Dose Admin Ondansetron HCl 4 mg ONCE ONCE SL 09/27/16 10:00 09/27/16 10:01 DC 09/27/16 10:03 4 MG Vital Signs/I&O Vital Sign - Last 12Hours 09/27/16 09/27/16 09:12 10:29 Temp 97.9 97.9 Pulse 71 71 Resp 16 16 B/P (MAP) 101/76 Pulse Ox 98 98 Blood Pressure Mean: 84 Progress Note : Progress Note Case was discussed with Dr. Burgos. He recommends ultrasound evaluation. Radiology staff confirmed ascites and was able to restore function of the drain with position changes. Patient was provided education on what to do in the future by radiology staff. The drain produced a significant amount of fluid prior to dismissal. His old wound on the right abdomen was read dressed with sterile gauze and antibiotic ointment. Diagnostic Imaging Diagonstic Imaging: Ultrasound Plain Films/CT/US/NM/MRI: abdomen Comments NAME: KATY MARIANO [facility] REC#: [id number] PT STATUS: REG ER : 1965 PHYSICIAN: OFE POSEY MD ADMIT DATE: 09/27/16/ER Draft Date of Exam:09/27/16 US ABDOMEN LIMITED [id number] PROCEDURE: US Abdomen, limited. TECHNIQUE: Multiple realtime grayscale images were obtained over the abdomen in various projections. INDICATION: Ascites followup. FINDINGS: There is still a prominent amount of fluid in the peritoneal cavity. IMPRESSION: Moderate ascites is seen. Dictated on workstation # [id number] Dict: 09/27/16 1012 Trans: 09/27/16 1014 [id number] Interpreted by: XAVIER BURGOS MD Departure Impression Impression: Primary Impression: paracentesis drain dysfunction Additional Impressions: Ascites Qualified Codes: R18.8 - Other ascites Nausea Disposition: 01 HOME, SELF-CARE Condition: Improved Departure-Patient Inst. Decision time for Depature: 10:19 Referrals: LAYO BRUNNER DO (PCP) Primary Care Physician LILY LAKHANI (Family) Primary Care Physician Patient Instructions: Fluid in the Belly (Ascites) Add. Discharge Instructions: Follow-up with Dr. Treadwell with any other problems or concerns. If you have difficulty with tube draining, please exercise position changes as instructed by radiology. All discharge instructions reviewed with patient and/or family. Voiced understanding. OFE POSEY MD Sep 27, 2016 10:20
[2016-09-27 10:29] VITALS: BP 101/76
== END 2016-09-27 10:29 | disposition home or self-care (01) ==
LOC: EDUNIT# 09:00 → ER 09:05
DX: T81.89XA Other complications of procedures, not elsewhere classified, initial encounter (principal); R18.8 Other ascites; R11.0 Nausea; J44.9 Chronic obstructive pulmonary disease, unspecified; K21.9 Gastro-esophageal reflux disease without esophagitis; F17.210 Nicotine dependence, cigarettes, uncomplicated; Z87.19 Personal history of other diseases of the digestive system
CPT/HCPCS: 76705; 99283

== ENCOUNTER 2016-09-28 17:10 | Emergency (ER) | payer SELFPAY ==
[~2016-09-28] VITALS: Ht 177.8 cm; Wt 90.8 kg
--- NOTE | 2016-09-28 17:55 | ED General ---
General Chief Complaint: Catheter/Drain/Tube Problems Stated Complaint: FLUID BAG LEAKING Nursing Triage Note: PT HAS AN ABDOMINAL PIG TAIL DRAIN THAT IS LEAKING. Nursing Sepsis Screen: No Definite Risk Source of Information: Patient, Family Exam Limitations: No Limitations History of Present Illness Time Seen by Provider: 17:30 Allergies and Home Medications Allergies Coded Allergies: No Known Drug Allergies (Unverified , 08/16/16) Home Medications Cetirizine HCl 10 Mg Tablet, 10 MG PO DAILY PRN for ALLERGIES, (Reported) Folic Acid 1 Mg Tablet, 1 MG PO DAILY, (Reported) Furosemide 20 Mg Tablet, 20 MG PO DAILY, (Reported) Gabapentin 300 Mg Capsule, 300 MG PO DAILY, (Reported) Gabapentin 300 Mg Capsule, 600 MG PO HS, (Reported) TAKES 2 (300 MG) CAPSULES Hydrocodone/Acetaminophen 1 Each Tablet, 1 EACH PO TID for 14 Days, #42 Prescribed by: KELLY PETERS on 09/23/16 1321 Pantoprazole Sodium 40 Mg Tablet.dr, 40 MG PO HS, (Reported) Sulfamethoxazole/Trimethoprim 1 Each Tablet, 1 TAB PO BID, (Reported) FILLED 09/20/16 #14 FOR A 7 DAY THERAPY Past Milvmgz-Evkyub-Pglybn Hx Patient Social History Alcohol Use: Rarely Uses Recreational Drug Use: Yes Drug of Choice: MARIJUANA Smoking Status: Current Everyday Smoker Type Used: Cigarettes Recent Foreign Travel: No Contact w/Someone Who Travel: No Recent Infectious Disease Expo: No Recent Hopitalizations: Yes (umbillical hernia repair one month ago ) Immunizations Up To Date Tetanus Booster (TDap): Unknown Seasonal Allergies Seasonal Allergies: Yes Surgeries HX Surgeries: Yes Surgeries: Abdominal, Orthopedic Respiratory Hx Respiratory Disorders: Yes Respiratory Disorders: COPD Cardiovascular Hx Cardiac Disorders: Yes Cardiac Disorders: Hypertension Neurological Hx Neurological Disorders: Yes Neurological Disorders: Neuropathy Reproductive System Hx Reproductive Disorders: No Genitourinary Hx Genitourinary Disorders: No Gastrointestinal Hx Gastrointestinal Disorders: Yes (HEP C+) Gastrointestinal Disorders: Gastroesophageal Reflux, Liver Disease/Jaundice, Hepatitis Musculoskeletal Hx Musculoskeletal Disorders: Yes (BILAT FEET PAIN) Endocrine Hx Endocrine Disorders: No HEENT HX ENT Disorders: Yes (DENTURES) Loss of Vision: Denies Hearing Impairment: Denies Cancer Hx Cancer: Yes Cancer: Skin Psychosocial Hx Psychiatric Problems: Yes Behavioral Health Disorders: Anxiety, Bipolar, Depression Integumentary HX Skin/Integumentary Disorder: Yes (SKIN LESIONS) Blood Transfusions Hx Blood Disorders: Yes (HEP C+) Adverse Reaction to a Blood Tr: No (N/A) Family Medical History Significant Family History: COPD, CVA, Diabetes, Psychiatric Problems Family Medial History: Alcoholism Arthritis Cataracts Completed stroke Deafness or hearing loss Diabetes mellitus Drug abuse Gastroenteritis Headache disorder Hypertension Psychosocial problem Respiratory disorder Physical Exam Vital Signs Vital Sign - Last 12Hours 09/28/16 17:14 Temp 97.0 Pulse 78 Resp 20 B/P (MAP) 95/69 Pulse Ox 97 O2 Delivery Room Air Capillary Refill : Less Than 3 Seconds Progress/Results/Core Measures Results/Orders Vital Signs/I&O Vital Sign - Last 12Hours 09/28/16 17:14 Temp 97.0 Pulse 78 Resp 20 B/P (MAP) 95/69 Pulse Ox 97 O2 Delivery Room Air Blood Pressure Mean: 78 Departure Impression Impression: Primary Impression: Encounter for change or removal of drains Disposition: 01 HOME, SELF-CARE Condition: Improved Departure-Patient Inst. Decision time for Depature: 17:56 Referrals: LAYO BRUNNER DO (PCP) Primary Care Physician LILY LAKHANI (Family) Primary Care Physician CARIDAD GREEN DO Patient Instructions: NO INSTRUCTIONS GIVEN Add. Discharge Instructions: All discharge instructions reviewed with patient and/or family. Voiced understanding. Continue current medications and instructions by Dr. Green. Follow-up with Dr. Green as an outpatient for recheck. Return to the emergency department for worsened symptoms or any other concerns. CARINE HAMMOND Sep 28, 2016 17:55
[2016-09-28 18:05] VITALS: BP 95/69
== END 2016-09-28 18:03 | disposition home or self-care (01) ==
LOC: EDUNIT# 17:10 → ER 17:11
DX: K91.89 Other postprocedural complications and disorders of digestive system (principal); I10 Essential (primary) hypertension; J44.9 Chronic obstructive pulmonary disease, unspecified; K21.9 Gastro-esophageal reflux disease without esophagitis; F17.210 Nicotine dependence, cigarettes, uncomplicated; Z87.19 Personal history of other diseases of the digestive system
CPT/HCPCS: 99283

== ENCOUNTER 2016-10-01 16:52 | Emergency (ER) | payer OTHER ==
[~2016-10-01] VITALS: Ht 177.8 cm; Wt 100.2 kg
--- NOTE | 2016-10-01 18:05 | ED Abdominal Pain ---
General Chief Complaint: Abdominal/GI Problems Stated Complaint: ABD SWELLING/PAIN,CHEST PAIN Nursing Triage Note: pt has history of liver cirrhosis/ascites; drain pulled yesterday supposed to have drain replaced tuesday but states he can not wait d/t the amount of pressure from the ascites. pt states he is having chest pain starting on the left side of his abd radiating into his chest and states it is causing shortness of air. Sepsis Screen: No Definite Risk Source of Information: Patient, Family Exam Limitations: No Limitations History of Present Illness Time Seen By Provider: 18:03 Initial Comments This 51-year-old white male well-known to the emergency department presents with abdominal distention and discomfort from his chronic ascites. Patient has end-stage liver disease and discussions this week with his physician was focused on hospice care. The patient is schedule on Tuesday to have a paracentesis with the radiologist here at 1 p.m. The patient is complaining of abdominal discomfort and distention. He would like to have something for his pain. He understands that neither of the surgeons by the radiologist will be able to facilitate paracentesis for him this evening in the emergency department. He denies associated fever, chills, severe shortness of breath, vomiting or diarrhea, paresthesias or weakness in extremities. Allergies and Home Medications Allergies Coded Allergies: No Known Drug Allergies (Unverified , 08/16/16) Home Medications Cetirizine HCl 10 Mg Tablet, 10 MG PO DAILY PRN for ALLERGIES, (Reported) Folic Acid 1 Mg Tablet, 1 MG PO DAILY, (Reported) Furosemide 20 Mg Tablet, 20 MG PO DAILY, (Reported) Gabapentin 300 Mg Capsule, 300 MG PO DAILY, (Reported) Gabapentin 300 Mg Capsule, 600 MG PO HS, (Reported) TAKES 2 (300 MG) CAPSULES Hydrocodone/Acetaminophen 1 Each Tablet, 1 EACH PO TID for 14 Days, #42 Prescribed by: KELLY PETERS on 09/23/16 1321 Pantoprazole Sodium 40 Mg Tablet.dr, 40 MG PO HS, (Reported) Sulfamethoxazole/Trimethoprim 1 Each Tablet, 1 TAB PO BID, (Reported) FILLED 09/20/16 #14 FOR A 7 DAY THERAPY Review of Systems Constitutional: No chills, No fever EENTM: No Blurred Vision Respiratory: Denies Cough, Denies Shortness of Air Cardiovascular: Denies Chest Pain Gastrointestinal: Abdomen Distended, Abdominal Pain, Denies Rectal Bleeding, Denies Vomiting Genitourinary: Denies Burning Musculoskeletal: No back pain Skin: No change in color Psychiatric/Neurological: Anxiety, Depressed Endocrine: No Symptoms Reported Hematologic/Lymphatic: No Symptoms Reported Past Nlyuvab-Fjgmkl-Ussogr Hx Patient Social History Alcohol Use: Past History Recreational Drug Use: Yes Drug of Choice: MARIJUANA Smoking Status: Current Everyday Smoker Type Used: Cigarettes Recent Foreign Travel: No Contact w/Someone Who Travel: No Recent Infectious Disease Expo: No Recent Hopitalizations: Yes (umbillical hernia repair one month ago ) Immunizations Up To Date Tetanus Booster (TDap): Unknown Seasonal Allergies Seasonal Allergies: Yes Surgeries HX Surgeries: Yes Surgeries: Abdominal, Orthopedic Respiratory Hx Respiratory Disorders: Yes Respiratory Disorders: COPD Cardiovascular Hx Cardiac Disorders: Yes Cardiac Disorders: Hypertension Neurological Hx Neurological Disorders: Yes Neurological Disorders: Neuropathy Reproductive System Hx Reproductive Disorders: No Genitourinary Hx Genitourinary Disorders: No Gastrointestinal Hx Gastrointestinal Disorders: Yes (HEP C+) Gastrointestinal Disorders: Gastroesophageal Reflux, Liver Disease/Jaundice, Hepatitis Musculoskeletal Hx Musculoskeletal Disorders: Yes (BILAT FEET PAIN) Endocrine Hx Endocrine Disorders: No HEENT HX ENT Disorders: Yes (DENTURES) Loss of Vision: Denies Hearing Impairment: Denies Cancer Hx Cancer: Yes Cancer: Skin Psychosocial Hx Psychiatric Problems: Yes Behavioral Health Disorders: Anxiety, Bipolar, Depression Integumentary HX Skin/Integumentary Disorder: Yes (SKIN LESIONS) Blood Transfusions Hx Blood Disorders: Yes (HEP C+) Adverse Reaction to a Blood Tr: No (N/A) Reviewed Nursing Assessment Reviewed/Agree w Nursing PMH: Yes Family Medical History Significant Family History: COPD, CVA, Diabetes, Psychiatric Problems Family Medial History: Alcoholism Arthritis Cataracts Completed stroke Deafness or hearing loss Diabetes mellitus Drug abuse Gastroenteritis Headache disorder Hypertension Psychosocial problem Respiratory disorder Physical Exam Vital Signs VS - Last 72 Hours, by Label 10/01/16 17:09 Temp 97.5 Pulse 66 Resp 20 B/P (MAP) 100/69 Pulse Ox 99 O2 Delivery Room Air Capillary Refill : Less Than 3 Seconds General Appearance: moderate distress HEENT: normal ENT inspection Neck: full range of motion, supple Respiratory: normal breath sounds, no respiratory distress Cardiovascular: regular rate, rhythm, no murmur Gastrointestinal: other (patient demonstrates ascites of the abdomen.) Extremities: normal range of motion, non-tender Back: normal inspection Neurologic/Psychiatric: no motor/sensory deficits, alert, normal mood/affect, oriented x 3 Skin: normal color, warm/dry Progress/Results/Core Measures Results/Orders My Orders Orders - MILTON SNOW MD Oxycodone Immediate Rel Tablet (Oxyir Ta (10/01/16 18:00) Vital Signs/I&O Vital Sign - Last 12Hours 10/01/16 17:09 Temp 97.5 Pulse 66 Resp 20 B/P (MAP) 100/69 Pulse Ox 99 O2 Delivery Room Air Blood Pressure Mean: 79 Progress Note : Time: 18:06 Progress Note I discussed at length with the surgery and radiology the patient's presentation. It was their consensus that as the patient has already scheduled for paracentesis Tuesday that no further treatment will be initiated at this point. Although disappointed the patient understands this recommendation. He asked for pain medication without Tylenol for his abdominal discomfort. I gave the patient 10 mg of oxycodone without acetaminophen in the emergency department. I asked the patient to rest at home this weekend, use the oxycodone that I prescribed, and return if he had any problems over the weekend to see me here in the emergency department. Departure Impression Impression: Primary Impression: Ascites Qualified Codes: K70.31 - Alcoholic cirrhosis of liver with ascites Additional Impression: End stage liver disease Disposition: 01 HOME, SELF-CARE Condition: Unchanged Departure-Patient Inst. Referrals: LAYO BRUNNER DO (PCP) Primary Care Physician LILY LAKHANI (Family) Primary Care Physician MILTON SNOW MD Oct 01, 2016 18:05
[2016-10-01 18:15] VITALS: BP 100/69
== END 2016-10-01 18:17 | disposition home or self-care (01) ==
LOC: EDUNIT# 16:52 → ER 16:55
DX: R18.8 Other ascites (principal); I12.0 Hypertensive chronic kidney disease with stage 5 chronic kidney disease or end stage renal disease; N18.6 End stage renal disease; K21.9 Gastro-esophageal reflux disease without esophagitis; J44.9 Chronic obstructive pulmonary disease, unspecified; Z87.19 Personal history of other diseases of the digestive system; F17.210 Nicotine dependence, cigarettes, uncomplicated
CPT/HCPCS: 99282

== ENCOUNTER → 2016-10-04 | Outpatient (CLI) | payer OTHER ==
--- NOTE | 2016-09-23 11:58 | Diagnostic Imaging Report ---
EXAMINATION: Ultrasound guided drain placement -peritoneal drain. INDICATION: Ascites. CONSENT: Informed consent was obtained from the patient. The risks, benefits, potential complications and alternatives were reviewed and all questions answered to the patient's satisfaction. FINDINGS: Moderate ascites. PROCEDURE: After sterile maximum barrier technique preparation and draping, 1% lidocaine was utilized for local anesthesia. An appropriate approach is selected based on preliminary scanning with ultrasound. A trocar technique for catheter insertion was performed utilizing ultrasound guidance into the left lower quadrant moderate-sized ascitic pocket. Image of proper location of the needle is documented. Ultrasound images confirm appropriate positioning of the 6.5 [place] drain and distal loop formed in the collection. A 60 ml of serous yellow fluid is aspirated . The drainage catheter is connected to suction type draining bag. The patient tolerated the procedure well with no immediate complications. The patient is sent back to the inpatient room for further drainage. IMPRESSION: Successful ultrasound-guided peritoneal drain placement in left lower quadrant. Dictated by: Dictated on workstation # [id number]
[~2016-10-04] VITALS: Ht 177.8 cm; Wt 100.3 kg
[~2016-10-04] MED LIST changes: +LIDOCAINE 1% INJ 20 ML (XYLOCAINE) VIAL INJ ONE
[2016-10-04 13:38] VITALS: BP 115/74
[2016-10-04 14:02] VITALS: BP 120/74
--- NOTE | 2016-10-04 16:16 | Diagnostic Imaging Report ---
EXAMINATION: Ultrasound guided drain placement -peritoneal drain. INDICATION: Ascites. The patient had significant the abdominal distention with small to moderate ascites. The patient has a significant tissue edema contributing to the distention. CONSENT: Informed consent was obtained from the patient. The risks, benefits, potential complications and alternatives were reviewed and all questions answered to the patient's satisfaction. FINDINGS: Deepest pocket of fluid is seen in the right flank. PROCEDURE: After sterile maximum barrier technique preparation and draping, 1% lidocaine was utilized for local anesthesia. An appropriate approach is selected based on preliminary scanning with ultrasound. A trocar technique for catheter insertion was performed utilizing ultrasound guidance into the peritoneal fluid pockets in the right flank. Image of proper location of the needle is documented. Ultrasound images confirm appropriate positioning of the 8 [place] drain and distal loop formed in the collection. The drainage catheter is connected to suction draining bag. The patient tolerated the procedure well with no immediate complications. IMPRESSION: Successful ultrasound-guided peritoneal drain placement in right flank. Dictated by: Dictated on workstation # [id number]
== END ==
LOC: RAD 13:04
PROVIDERS: ATTEND Surgery
DX: R18.8 Other ascites (principal)
CPT/HCPCS: 49083; 75989

== ENCOUNTER → 2016-11-02 | Outpatient (CLI) | payer OTHER ==
[~2016-11-02] VITALS: Ht 177.8 cm; Wt 100.3 kg
[2016-11-02 15:30] VITALS: BP 148/80
[2016-11-02 16:01] VITALS: BP 120/62
--- NOTE | 2016-11-02 17:07 | Diagnostic Imaging Report ---
EXAMINATION: Ultrasound-guided peritoneal drain placement. INDICATION: Ascites. CONSENT: Informed consent was obtained from the patient. The risks, benefits, potential complications and alternatives were reviewed and all questions answered to the patient's satisfaction. The patient's vital signs, cardiac rhythm, and pulse oximetry with observed throughout the procedure by qualified nursing personnel. FINDINGS: ascites. PROCEDURE: After sterile preparation and draping, 1% lidocaine was utilized for local anesthesia. Following sterile preparation and local anesthetic and using 2 D real-time ultrasound for guidance, a 8.5 [place] sheath with trocar was introduced into the peritoneal fluid collection in the right lower quadrant from an anterior approach. Initial fluid return was thin, serous fluid. The 8.5 [place] drainage catheter is left in place for drainage. The patient was transferred to the floor for from continuous drainage and instructions were given for removal of the peritoneal catheter once the drainage stops. No immediate complications. IMPRESSION: Successful ultrasound peritoneal drainage catheter placement. Dictated by: Dictated on workstation # [id number]
== END ==
LOC: RAD 15:25
PROVIDERS: ATTEND Surgery
DX: R18.8 Other ascites (principal)
CPT/HCPCS: 75989